=== PATIENT | male | born 1955 | race Caucasian/White ===

== ENCOUNTER 2020-01-03 09:51 | Outpatient (REF) | payer MEDICARE, SELFPAY ==
[2020-01-03 10:10] LABS: MANUAL DIFF FLAG NO
[2020-01-03 10:34] LABS: Basophils Absolute Auto 0.1 X10*3/uL (0.0-0.2); Basophils Percent Auto 0.9 % (0-2); Eosinophils Absolute Auto 0.2 X10*3/uL (0.0-0.4); Eosinophils Percent Auto 2.2 % (0-4); Hematocrit 40.6 % (42-52); Hemoglobin 13.7 g/dl (14.0-18.0); Imm Gran Abs Auto 0.03 X10*3/uL (0.00-0.03); Imm Gran Pct Auto 0.3 % (0.0-0.4); Lymphocytes Absolute Auto 2.8 X10*3/uL (1.2-4.9); Lymphocytes Percent Auto 26.7 % (20-40); Mean Corpuscular HGB Conc 33.7 g/dl (31.0-36.0); Mean Corpuscular Hemoglobin 30.3 pg (27.0-33.0); Mean Corpuscular Volume 89.8 fL (80-98); Mean Platelet Volume 8.7 fL (9.4-12.4); Monocytes Absolute Auto 0.9 X10*3/uL (0.1-1.2); Monocytes Percent Auto 8.4 % (2-11); Neutrophils Absolute Auto 6.4 X10*3/uL (2.0-8.3); Neutrophils Percent Auto 61.5 % (45-73); Platelet Count 366 X10*3/uL (160-400); Red Blood Count 4.52 X10*6/uL (4.60-5.80); Red Cell Distribution Width 12.4 % (11.0-16.0); White Blood Count 10.5 X10*3/uL (4.8-10.8)
[2020-01-03 10:55] LABS: Alanine Aminotransferase 14 U/L (0-40); Albumin Level 4.2 g/dL (3.5-5.0); Alkaline Phosphatase 66 U/L (39-117); Anion Gap 16 (12-20); Aspartate Amino Transferase 24 U/L (5-37); Bilirubin Total 0.6 mg/dL (0.0-1.0); Blood Urea Nitrogen 9 mg/dL (9-16); Calcium 8.7 mg/dL (8.4-10.2); Carbon Dioxide 22 mmol/L (22-29); Chloride 101 mmol/L (96-108); Estimated Glomerular Filt Rate > 60; Glucose Random 86 mg/dL (60-115); Potassium 4.7 mmol/l (3.3-5.1); Sodium 134 mmol/L (135-145); Total Protein 7.2 g/dL (6.5-8.0)
[2020-01-03 11:13] LABS: Vitamin D 25-OH Total 9.5 ng/mL (>30)
== END 2020-01-03 09:52 | disposition home or self-care (01) ==
LOC: HO.10HDL 09:51
PROVIDERS: PCP Internal Medicine; Visit Provider Internal Medicine
DX: I10 Essential (primary) hypertension (principal); M54.9 Dorsalgia, unspecified
CPT/HCPCS: 36415; 80053; 82306; 85025

== ENCOUNTER 2020-07-26 07:03 | Outpatient (REF) | payer MEDICARE, SELFPAY ==
[2020-07-26 07:53] LABS: MANUAL DIFF FLAG NO
[2020-07-26 07:58] LABS: Basophils Absolute Auto 0.1 X10*3/uL (0.0-0.2); Basophils Percent Auto 0.6 % (0-2); Eosinophils Absolute Auto 0.4 X10*3/uL (0.0-0.4); Eosinophils Percent Auto 3.9 % (0-4); Hemoglobin 13.5 g/dl (14.0-18.0); Imm Gran Abs Auto 0.04 X10*3/uL (0.00-0.03); Imm Gran Pct Auto 0.4 % (0.0-0.4); Lymphocytes Absolute Auto 2.9 X10*3/uL (1.2-4.9); Lymphocytes Percent Auto 27.4 % (20-40); Mean Corpuscular HGB Conc 33.8 g/dl (31.0-36.0); Mean Corpuscular Hemoglobin 30.5 pg (27.0-33.0); Mean Corpuscular Volume 90.3 fL (80-98); Mean Platelet Volume 8.4 fL (9.4-12.4); Monocytes Absolute Auto 0.9 X10*3/uL (0.1-1.2); Monocytes Percent Auto 8.6 % (2-11); Neutrophils Absolute Auto 6.3 X10*3/uL (2.0-8.3); Neutrophils Percent Auto 59.1 % (45-73); Platelet Count 396 X10*3/uL (160-400); Red Blood Count 4.43 X10*6/uL (4.60-5.80); Red Cell Distribution Width 12.4 % (11.0-16.0); White Blood Count 10.6 X10*3/uL (4.8-10.8)
[2020-07-26 08:28] LABS: Alanine Aminotransferase 16 U/L (0-40); Albumin Level 4.4 g/dL (3.5-5.0); Alkaline Phosphatase 62 U/L (39-117); Anion Gap 11 (12-20); Aspartate Amino Transferase 14 U/L (5-37); Bilirubin Total 0.4 mg/dL (0.0-1.0); Blood Urea Nitrogen 12 mg/dL (9-16); Calcium 9.7 mg/dL (8.4-10.2); Carbon Dioxide 29 mmol/L (22-29); Chloride 103 mmol/L (96-108); Estimated Glomerular Filt Rate > 60; Glucose Random 94 mg/dL (60-115); Potassium 4.9 mmol/L (3.3-5.1); Sodium 138 mmol/L (135-145); Total Protein 6.9 g/dL (6.5-8.0)
[2020-07-26 08:35] LABS: Prostate Specific Antigen 0.81 ng/mL (<0.05-4.0)
== END 2020-07-26 07:04 | disposition home or self-care (01) ==
LOC: HO.LAB 07:03
PROVIDERS: PCP Internal Medicine; Visit Provider Internal Medicine
DX: Z12.5 Encounter for screening for malignant neoplasm of prostate (principal); I10 Essential (primary) hypertension; M54.5 Low back pain; R35.1 Nocturia
CPT/HCPCS: 36415; 80053; 84153; 85025

== ENCOUNTER 2021-04-23 07:41 | Outpatient (REF) | payer MEDICARE, SELFPAY ==
[2021-04-23 10:32] LABS: MANUAL DIFF FLAG NO
[2021-04-23 10:37] LABS: Basophils Absolute Auto 0.1 X10*3/uL (0.0-0.2); Basophils Percent Auto 0.9 % (0-2); Eosinophils Absolute Auto 0.3 X10*3/uL (0.0-0.4); Eosinophils Percent Auto 2.5 % (0-4); Hematocrit 41.4 % (42.0-52.0); Hemoglobin 14.3 g/dl (14.0-18.0); Imm Gran Abs Auto 0.03 X10*3/uL (0.00-0.03); Imm Gran Pct Auto 0.3 % (0.0-0.4); Lymphocytes Absolute Auto 3.4 X10*3/uL (1.2-4.9); Lymphocytes Percent Auto 33.3 % (20-40); Mean Corpuscular HGB Conc 34.5 g/dl (31.0-36.0); Mean Corpuscular Hemoglobin 30.8 pg (27.0-33.0); Mean Platelet Volume 8.8 fL (9.4-12.4); Monocytes Absolute Auto 0.9 X10*3/uL (0.1-1.2); Monocytes Percent Auto 8.4 % (2-11); Neutrophils Absolute Auto 5.6 x10*3/uL (2.0-8.3); Neutrophils Percent Auto 54.6 % (45-73); Platelet Count 441 X10*3/uL (160-400); Red Blood Count 4.65 X10*6/uL (4.60-5.80); Red Cell Distribution Width 12.4 % (11.0-16.0); White Blood Count 10.2 X10*3/uL (4.8-10.8)
[2021-04-23 10:50] LABS: Anion Gap 11 (12-20); Blood Urea Nitrogen 10 mg/dL (9-16); Calcium 10.1 mg/dL (8.4-10.2); Carbon Dioxide 30 mmol/L (22-29); Chloride 98 mmol/L (96-108); Cholesterol 216 mg/dL; Estimated Glomerular Filt Rate > 60; Glucose Fasting 80 mg/dL (60-99); HDL Cholesterol 59 mg/dL; LDL Cholesterol Calculated 136 mg/dl; Potassium 4.4 mmol/L (3.3-5.1); Sodium 135 mmol/L (135-145); Triglycerides 106 mg/dL
== END 2021-04-23 07:42 | disposition home or self-care (01) ==
LOC: HO.10HDL 07:41
PROVIDERS: Visit Provider Internal Medicine
DX: J44.9 Chronic obstructive pulmonary disease, unspecified (principal); I10 Essential (primary) hypertension; M54.9 Dorsalgia, unspecified; K57.90 Diverticulosis of intestine, part unspecified, without perforation or abscess without bleeding
CPT/HCPCS: 36415; 80048; 80061; 85025

== ENCOUNTER 2021-12-25 13:24 | Emergency (ER) | payer MEDICARE, SELFPAY ==
[2021-12-25 13:41] VITALS: BP 185/95; PULSE 97; RESP 18; TEMP 37.1; O2SAT 100; BMI 24.4
--- NOTE | 2021-12-25 16:48 | ED_ITS ---
HPI - General Adult General Chief complaint: Eye Problems Stated complaint: fb in l eye Time Seen by Provider: 12/25/21 16:14 Source: patient Limitations: no limitations History of Present Illness HPI narrative: This is a 66-year-old male who yesterday had noted a squiggly lines in his vision. Patient initially thought it might be a hair from a cat that was on his eye. The patient tried rinsing his eye out with eyedrops. The patient's morning stated the eye seems normal. He has not had any irritation, redness, or foreign body sensation. Patient went fishing but again noticed that he had a squiggly line in his vision, that seem to move when he moved his eyeball. He he denies any sensation like a curtain coming down or crosses vision. Denies any flashing lights. He has no headache, redness, irritation, tearing. Related Data Allergies Allergy/AdvReac Type Severity Reaction Status Date / Time Penicillins Allergy Mild HIVES Unverified 11/22/19 15:01 Sulfa (Sulfonamide Allergy Unknown UNKNOWN Unverified 11/22/19 15:01 Antibiotics) Penicillin Allergy Unknown Uncoded 05/10/11 00:00 Review of Systems Review of Systems: As per HPI Constitutional: Constitutional: Denies headache(s) Eyes: Eyes: Reports as per HPI ENT: Denies headache(s) Neurologic: Denies Abnormal speech present and Denies headache(s) [facility] Social History Social History Advance Directives: No Advance Directives Information Provided: Yes Physical Exam ED Vital Signs: Vital Signs - 24 hr 12/25/21 13:41 Temperature 98.7 F Pulse Rate 97 Respiratory Rate 18 Blood Pressure 185/95 H Pulse Oximetry 100 Oxygen Delivery Method Room Air BMI result Body Mass Index 24.4 Const Other: Patient well-appearing in no distress Eyes Other: Pupils equal round reactive to light conjunctivae pink. No conjunctival irritation. Retina not well visualized due to pupillary constriction but no obvious vitreous hemorrhage apparent. Visual kramer normal General: appearance normal, both eyes and all related structures Resp Effort & Inspection: normal respiratory effort Auscultation: clear to auscultation bilaterally Cardio Rate: regular rate Rhythm: regular rhythm Heart sounds: S1 normal heart sound present and S2 normal heart sound present Neuro Speech: No Abnormal speech present Course Course Course Narrative: Bedside ultrasound was used to evaluate the patient's left eye. The contour of the retinal surface appeared normal, with no evidence of retinal detachment. Medical Decision Making MDM Narrative Medical decision making narrative: Patient with a screw going line in his vision, which sounds like a floater from the way he describes it. Examination of the eye is normal. Visual kramer were normal. Ultrasound was used to evaluate for retinal detachment and the retinal surface appeared smooth. Patient is being referred to Ophthalmology as he needs a dilated exam to further evaluate his eye more completely. No evidence of corneal injury or foreign body clinical Discharge Plan Discharge Clinical Impression: Floaters in visual field Patient Disposition: Home, Self-Care Additional Instructions: Follow-up with an boat hoist operator helper for a dilated exam. You appear to have a floater in your vitreous humor, which is a common phenomenon. I do not suspect a retinal detachment or vitreous detachment, though follow-up with an eye doctor for more thorough exam is warranted. Return for any new or worsened symptoms such as eye irritation or redness, worse change in her vision, flashing lights or a a curtain like phenomenon in your vision Referrals: Jose Alberto Eldridge [Physician] - 3 days Interventions: ED Discharge Assessment Last Done: 12/25/21 16:57 Discharge Date/Time: 12/25/21 16:57
== END 2021-12-25 16:57 | disposition home or self-care (01) ==
PROVIDERS: Emergency Provider Emergency Medicine; PCP Internal Medicine
DX: H43.392 Other vitreous opacities, left eye (principal)
CPT/HCPCS: 99282

== ENCOUNTER 2022-04-06 07:33 | Outpatient (REF) | payer MEDICARE, SELFPAY ==
[2022-04-06 10:35] LABS: MANUAL DIFF FLAG NO
[2022-04-06 10:44] LABS: Appearance Urine Clear; Color Urine Yellow; Glucose Urine UA Negative (Negative); Leukocyte Esterase Urine Small (1+) (Negative); Nitrite Urine Negative (Negative); UMIC TRIGGER UA YES; Urine Blood Negative (Negative); Urine Ketones Negative (Negative); Urine Protein Negative (Neg-Trace)
[2022-04-06 10:47] LABS: Basophils Absolute Auto 0.1 X10*3/uL (0.0-0.2); Basophils Percent Auto 0.8 % (0-2); Eosinophils Absolute Auto 0.3 X10*3/uL (0.0-0.4); Eosinophils Percent Auto 2.9 % (0-4); Hematocrit 45.6 % (42.0-52.0); Hemoglobin 15.7 g/dl (14.0-18.0); Imm Gran Abs Auto 0.02 X10*3/uL (0.00-0.03); Imm Gran Pct Auto 0.2 % (0.0-0.4); Lymphocytes Absolute Auto 4.4 X10*3/uL (1.2-4.9); Lymphocytes Percent Auto 39.5 % (20-40); Mean Corpuscular HGB Conc 34.4 g/dl (31.0-36.0); Mean Corpuscular Hemoglobin 30.1 pg (27.0-33.0); Mean Corpuscular Volume 87.5 fL (80.0-98.0); Mean Platelet Volume 9.4 fL (9.4-12.4); Neutrophils Absolute Auto 5.2 x10*3/uL (2.0-8.3); Neutrophils Percent Auto 47.6 % (45-73); Platelet Count 317 X10*3/uL (160-400); Red Blood Count 5.21 X10*6/uL (4.60-5.80)
[2022-04-06 10:49] LABS: Bacteria Urine 4+ (None Seen); Hyaline Casts Urine 0-2 /LPF (0-2); RBC Urine 0-2 /HPF (0-2); Squamous Epithelial Cell Urine 0-2 /HPF (0-2)
[2022-04-06 12:01] LABS: Prostate Specific Antigen Scr 0.95 ng/mL (<0.05-4.0)
[2022-04-06 12:07] LABS: Alanine Aminotransferase 19 U/L (0-40); Albumin Level 4.7 g/dL (3.5-5.0); Alkaline Phosphatase 71 U/L (39-117); Anion Gap 14 (12-20); Aspartate Amino Transferase 17 U/L (5-37); Bilirubin Total 0.7 mg/dL (0.0-1.0); Blood Urea Nitrogen 7 mg/dL (9-16); Calcium 9.8 mg/dL (8.4-10.2); Carbon Dioxide 27 mmol/L (22-29); Chloride 99 mmol/L (96-108); Cholesterol 229 mg/dL; Estimated Glomerular Filt Rate > 60; Glucose Fasting 73 mg/dL (60-99); HDL Cholesterol 59 mg/dL; LDL Cholesterol Calculated 150 mg/dl; Potassium 4.4 mmol/L (3.3-5.1); Sodium 136 mmol/L (135-145); Total Protein 7.3 g/dL (6.5-8.0); Triglycerides 101 mg/dL
== END 2022-04-06 07:34 | disposition home or self-care (01) ==
LOC: HO.10HDL 07:33
PROVIDERS: Visit Provider Internal Medicine
DX: E78.00 Pure hypercholesterolemia, unspecified (principal); K57.90 Diverticulosis of intestine, part unspecified, without perforation or abscess without bleeding; I10 Essential (primary) hypertension; R35.1 Nocturia; Z12.5 Encounter for screening for malignant neoplasm of prostate
CPT/HCPCS: 36415; 80053; 80061; 81001; 84153; 85025

== ENCOUNTER 2022-08-09 07:41 | Outpatient (REF) | payer MEDICARE, SELFPAY ==
[2022-08-09 11:53] LABS: Alanine Aminotransferase 19 U/L (0-40); Albumin Level 4.4 g/dL (3.5-5.0); Alkaline Phosphatase 75 U/L (39-117); Anion Gap 13 (12-20); Aspartate Amino Transferase 16 U/L (5-37); Bilirubin Total 0.3 mg/dL (0.0-1.0); Blood Urea Nitrogen 11 mg/dL (9-16); Calcium 9.4 mg/dL (8.4-10.2); Carbon Dioxide 27 mmol/L (22-29); Chloride 103 mmol/L (96-108); Cholesterol 136 mg/dL; Estimated Glomerular Filt Rate > 60; Glucose Fasting 83 mg/dL (60-99); HDL Cholesterol 51 mg/dL; LDL Cholesterol Calculated 73 mg/dl; Potassium 4.3 mmol/L (3.3-5.1); Sodium 139 mmol/L (135-145); Total Protein 6.9 g/dL (6.5-8.0); Triglycerides 62 mg/dL
== END 2022-08-09 07:42 | disposition home or self-care (01) ==
LOC: HO.10HDL 07:41
PROVIDERS: Visit Provider Internal Medicine
DX: E78.00 Pure hypercholesterolemia, unspecified (principal); I10 Essential (primary) hypertension
CPT/HCPCS: 36415; 80053; 80061

== ENCOUNTER 2022-11-26 09:47 | Outpatient (REF) | payer MEDICARE, SELFPAY ==
--- NOTE | ~2022-11-26 | XR_ITS ---
EXAMINATION: XR CHEST CLINICAL INFORMATION: Reason for Exam COUGH COMPARISON: No prior imaging was not able to be retrieved at the time of dictation for comparison. TECHNIQUE: 2 views of the chest FINDINGS: Lines and tubes: None. Clear lungs. No pleural effusion. No pneumothorax. Ectatic thoracic aorta. Normal cardiac silhouette. Minimal indeterminate wedge compression deformity of a lower thoracic vertebral body, favored to be T12 with thoracic kyphosis. XR/XR chest 2V IMPRESSION: 1. Clear lungs. 2. Ectatic thoracic aorta. 3. Minimal indeterminate wedge compression deformity of a lower thoracic vertebral body, favored to be T12 with thoracic kyphosis.
== END 2022-11-26 09:48 | disposition home or self-care (01) ==
LOC: HO.XRAY 09:47
PROVIDERS: PCP Internal Medicine; Visit Provider Internal Medicine
DX: R05.9 Cough, unspecified (principal); R06.02 Shortness of breath
CPT/HCPCS: 71046

== ENCOUNTER → 2022-12-15 07:40 | Outpatient (REF) | payer MEDICARE, SELFPAY ==
--- NOTE | ~2022-12-15 | NM_ITS ---
Lexiscan Myocardial perfusion study Indication: Shortness of breath, assess for coronary disease and ischemia Technique: The patient was brought in for a Lexiscan perfusion study on 12/15/2022 and was injected 0.4 mg of Lexiscan intravenously. Within a minute of this injection 25 mCi of sestamibi was given intravenously. Images were obtained using the SPECT gamma camera interlaced with the gating device. Images were obtained in supine position. Resting perfusion study was performed on 12/16/2022. Patient was administered 25 mCi of sestamibi intravenously at rest. Images were then obtained in supine position. Images were processed with the software and compared side to side in short axis, horizontal long axis and vertical long axis views. Total DLP 92mGy-cm. Findings: Raw acquisition reviewed. Arms by the patient's side. Study quality seems suboptimal. The stress perfusion study showed diminished tracer uptake along the inferior wall, basal inferior septum. Possibly some subdiaphragmatic tracer uptake as well. The gated study shows normal LV systolic function with calculated LVEF of 65%. LV cavity is normal in size. The gated study shows reduced thickening and contractility in the inferior wall and basal part of septum. Resting study shows tracer uptake along the inferior wall and basal part of inferior septum/septum. There is improvement with CT attenuation correction which could indicate components of diaphragmatic attenuation artifact. Gating at rest reveals LVEF of 61%; inferior/basal septal contractility reduced. The findings are consistent with fixed perfusion defect in the inferior wall, basal part of septum/inferior septum. Possibly from diaphragmatic attenuation correction. No clear reversible defects. NM/NM amador perf SPECT rest & str Impression: 1. Myocardial perfusion imaging study shows no evidence of ischemia. Fixed perfusion defect in the inferior wall, basal part of inferior septum/septum that could be from diaphragmatic attenuation artifact vs prior infarct. 2. Gated LVEF is 60% during stress and 61% during rest. 3. Transient ischemic dilatation not present. EKG component of the test reported separately.
== END ==
LOC: HO.CARD 07:40
PROVIDERS: PCP Internal Medicine; Visit Provider Internal Medicine
DX: R06.09 Other forms of dyspnea (principal)
CPT/HCPCS: 78452; 93017; A9500; J0280; J2785

== ENCOUNTER → 2022-12-15 08:30 | Outpatient (BNV) | payer MEDICARE, SELFPAY | PROVIDERS: PCP Internal Medicine; Visit Provider Internal Medicine | DX: R06.02 Shortness of breath (principal); R07.9 Chest pain, unspecified | CPT/HCPCS: 78452 ==

== ENCOUNTER 2023-08-11 13:47 | Emergency (ER) | payer MEDICARE, SELFPAY ==
[2023-08-11 14:09] VITALS: BP 143/72; PULSE 81; RESP 19; TEMP 36.6; O2SAT 98; BMI 23.7
--- NOTE | 2023-08-11 14:12 | ED.ABDPAIN ---
HPI - Abdominal Pain General Chief Complaint: Abdominal Pain Stated Complaint: Hernia, swelling/pain groin area Related Data Allergies Allergy/AdvReac Type Severity Reaction Status Date / Time Penicillins Allergy Mild HIVES Verified 08/11/23 14:11 Sulfa (Sulfonamide Allergy Unknown UNKNOWN Verified 08/11/23 14:11 Antibiotics) Penicillin Allergy Unknown Hives Uncoded 08/11/23 14:11 PMFSH Social History Social History Advance Directives: No Advance Directives Information Provided: No Physical Exam ED Vital Signs: Vital Signs - 24 hr 08/11/23 14:09 Temperature 98 F Pulse Rate 81 Respiratory Rate 19 Blood Pressure 143/72 H Pulse Oximetry 98 Oxygen Delivery Method Room Air BMI result Body Mass Index 23.7 Course Course Course Narrative: This is a Rapid Medical Examination (RME) performed by Jessica Cole PA-C in triage. Full HPI, ROS, assessment and treatment plan per primary provider in the Main ED. 67 yo male here for eval of right groin hernia x2 weeks with increasing pain (7/10) and now nausea wiithout vomiting. denies injury/ trauma. denies diarrhea, constipation, dysuria, hematuria, penile discharge or lesions. exam limited in triage. well appearing. Plan: labs, UA ordered, +/- imaging per primary provider Reevaluation(s) Reevaluation #1: Patient left the ED without completing treatment. Medical Decision Making Lab Data 08/11/23 15:03 08/11/23 15:03 Labs: Lab Results 08/11/23 Range/Units 15:03 WBC 9.1 (4.8-10.8) X10*3/uL RBC 4.54 L (4.60-5.80) X10*6/uL Hgb 14.3 (14.0-18.0) g/dl Hct 40.0 L (42.0-52.0) % MCV 88.1 (80.0-98.0) fL MCH 31.5 (27.0-33.0) pg MCHC 35.8 (31.0-36.0) g/dl RDW 12.4 (11.0-16.0) % Plt Count 324 (160-400) X10*3/uL MPV 8.4 L (9.4-12.4) fL Immature Gran % (Auto) 0.2 (0.0-0.4) % Neut % (Auto) 63.2 (45-73) % Lymph % (Auto) 27.1 (20-40) % [place] % (Auto) 6.6 (2-11) % Eos % (Auto) 1.9 (0-4) % Baso % (Auto) 1.0 (0-2) % Lymph # (Auto) 2.5 (1.2-4.9) X10*3/uL [place] # (Auto) 0.6 (0.1-1.2) X10*3/uL Eos # (Auto) 0.2 (0.0-0.4) X10*3/uL Baso # (Auto) 0.1 (0.0-0.2) X10*3/uL Abs Immat Gran (auto) 0.02 (0.00-0.03) X10*3/uL Absolute Neuts (auto) 5.8 (2.0-8.3) x10*3/uL Absolute Nucleated RBC 0.000 (0.0-0.012) X10*3/uL Nucleated RBC % (auto) 0.0 (0.0-0.2) /100WBC PT 12.7 (11.1-13.3) SEC INR 1.0 (0.9-1.1) Sodium 139 (135-145) mmol/L Potassium 4.1 (3.3-5.1) mmol/L Chloride 103 (96-108) mmol/L Carbon Dioxide 30 H (22-29) mmol/L Anion Gap 10 L (12-20) BUN 8 L (9-16) mg/dL Creatinine 0.71 (0.5-1.4) mg/dL Estim Creat Clear Calc 107.5 Estimated GFR > 60 Random Glucose 95 (60-115) mg/dL Calcium 9.8 (8.4-10.2) mg/dL Magnesium 1.9 (1.6-2.6) mg/dL Total Bilirubin 0.5 (0.0-1.0) mg/dL AST 20 (5-37) U/L ALT 19 (0-40) U/L Alkaline Phosphatase 60 (39-117) U/L Total Protein 7.2 (6.5-8.0) g/dL Albumin 4.6 (3.5-5.0) g/dL Lipase 22 (8-78) U/L Discharge Plan Discharge Clinical Impression: Abdominal pain Patient Disposition: Left W/O Completing Treatment Discharge Date/Time: 08/11/23 20:12
[2023-08-11 15:08] LABS: MANUAL DIFF FLAG NO
[2023-08-11 15:12] LABS: Basophils Absolute Auto 0.1 X10*3/uL (0.0-0.2); Eosinophils Absolute Auto 0.2 X10*3/uL (0.0-0.4); Eosinophils Percent Auto 1.9 % (0-4); Hemoglobin 14.3 g/dl (14.0-18.0); Imm Gran Abs Auto 0.02 X10*3/uL (0.00-0.03); Imm Gran Pct Auto 0.2 % (0.0-0.4); Lymphocytes Absolute Auto 2.5 X10*3/uL (1.2-4.9); Lymphocytes Percent Auto 27.1 % (20-40); Mean Corpuscular HGB Conc 35.8 g/dl (31.0-36.0); Mean Corpuscular Hemoglobin 31.5 pg (27.0-33.0); Mean Corpuscular Volume 88.1 fL (80.0-98.0); Mean Platelet Volume 8.4 fL (9.4-12.4); Monocytes Absolute Auto 0.6 X10*3/uL (0.1-1.2); Monocytes Percent Auto 6.6 % (2-11); Neutrophils Absolute Auto 5.8 x10*3/uL (2.0-8.3); Neutrophils Percent Auto 63.2 % (45-73); Platelet Count 324 X10*3/uL (160-400); Red Blood Count 4.54 X10*6/uL (4.60-5.80); Red Cell Distribution Width 12.4 % (11.0-16.0); White Blood Count 9.1 X10*3/uL (4.8-10.8)
[2023-08-11 15:17] LABS: Prothrombin Time 12.7 SEC (11.1-13.3)
[2023-08-11 15:24] LABS: Alanine Aminotransferase 19 U/L (0-40); Albumin Level 4.6 g/dL (3.5-5.0); Alkaline Phosphatase 60 U/L (39-117); Anion Gap 10 (12-20); Aspartate Amino Transferase 20 U/L (5-37); Bilirubin Total 0.5 mg/dL (0.0-1.0); Blood Urea Nitrogen 8 mg/dL (9-16); Calcium 9.8 mg/dL (8.4-10.2); Carbon Dioxide 30 mmol/L (22-29); Chloride 103 mmol/L (96-108); Creatinine Clr Calc Pharmacy 107.5; Estimated Glomerular Filt Rate > 60; Glucose Random 95 mg/dL (60-115); Lipase 22 U/L (8-78); Magnesium 1.9 mg/dL (1.6-2.6); Potassium 4.1 mmol/L (3.3-5.1); Sodium 139 mmol/L (135-145); Total Protein 7.2 g/dL (6.5-8.0)
--- NOTE | 2023-08-11 20:12 | PC.NURSE ---
Called in WR multiple times with no answer
== END 2023-08-11 20:12 | disposition left against medical advice (07) ==
PROVIDERS: Physician Assistant Medical; Emergency Provider Emergency Medicine; PCP Internal Medicine
DX: R10.30 Lower abdominal pain, unspecified (principal); Z79.899 Other long term (current) drug therapy
CPT/HCPCS: 36415; 80053; 83690; 83735; 85025; 85610; 99281; 99283

== ENCOUNTER 2023-08-16 10:38 | Outpatient (AMB) | payer MEDICARE, SELFPAY ==
[2023-08-16 10:38] VITALS: BP 148/70; PULSE 82; BMI 23.1
--- NOTE | 2023-08-16 10:38 | MHC.OFFVIS ---
Vital Signs 08/16/23 10:38 Height 5 ft 11 in Weight 166 lb BMI 23.1 BP 148/70 H Blood Pressure Location Rt brachial Position Sitting Pulse 82 Intake Visit Reasons: symptomatic rt inguinal hernia Intake Note: This patient presents for a symptomatic right inguinal hernia. Patient c/o; reports bulge, right groin, reports pain and discomfort. Administration Intern Required: No Accompanied by: Self / Same As Patient Allergies Penicillins Allergy (Mild, Verified 08/16/23 10:47) HIVES Sulfa (Sulfonamide Antibiotics) Allergy (Unknown, Verified 08/16/23 10:47) UNKNOWN Penicillin Allergy (Unknown, Uncoded 08/16/23 10:47) Hives Medication List - Last Reconciled 08/16/23 by Wisam Malave MD amlodipine 10 mg PO DAILY hydroxyzine HCl 10 mg PO TID prednisone 20 mg PO DAILY rosuvastatin 5 mg PO DAILY tramadol 50 mg PO TID PRN HPI Comments Details: 67-year-old male patient presenting for evaluation of a right inguinal hernia. He is a prior history of incarcerated left inguinal hernia repaired by Dr. Martinez on 12/15/2010. The current hernia began several weeks ago when going up the stairs to catch his CT. He twisted and felt a pull in the right groin. Subsequent to that he developed some tightness and then a large bulge which he currently feels. The bulge increases with lifting but decreases when in the bed. He has discomfort associated with this bulge but denies any nausea, vomiting, fever, chills, diarrhea or constipation. He denies previous right inguinal hernia surgery. [facility] Surgical History No pertinent past surgical history Social History Unable to assess alcohol history related to: Unknown Patient Tobacco Use Status: Tobacco use Unknown Review of Systems Const All systems reviewed & are unremarkable except as noted in HPI and below Denies chills, Denies fever(s), Denies headache(s), Denies poor appetite and Denies weakness ENT Denies headache(s) Card Denies chest pain, Denies irregular heart rhythm, Denies palpitations and Denies dyspnea Resp Denies cough, Denies excessive phlegm production and Denies dyspnea GI Denies abdominal pain, Denies bloating, Denies change in bowel habits, Denies constipation, Denies heartburn, Denies diarrhea, Denies nausea and Denies vomiting Denies difficulty urinating and Denies urinary frequency Musc Denies back pain, Denies muscle weakness and Denies numbness Skin/Breast Denies changing lesions and Denies unusual bruising Neuro Denies headache(s), Denies numbness, Denies paresthesias and Denies weakness Psych Denies anxiety and Denies depression Endo Denies palpitations Leonardo/Lymph Denies lymphadenopathy Physical Exam Const General: cooperative and no acute distress Nutritional Appearance: well nourished Orientation/consciousness: patient oriented x3 Limitations: no limitations HEENT Head: Yes normocephalic and Yes atraumatic Ears: hearing grossly normal bilaterally Resp Effort & Inspection: normal respiratory effort, no audible wheezes, no cough and no respiratory distress Cardio Jugular venous distension: no JVD GI Inspection: Yes normal to inspection Palpation (GI): Soft to palpation, nontender, no guarding, not rigid and Hernia present direct inguinal (Reducible) on the right Skin Other: Warm, dry, no rash Neuro General: patient oriented x3 Extrem General: Yes no clubbing, cyanosis or edema Assessment & Plan Assessment & Plan (1) Right inguinal hernia: Code(s): K40.90 - Unilateral inguinal hernia, without obstruction or gangrene, not specified as recurrent Category: Medical Plan 67-year-old male patient presenting with a reducible right inguinal hernia. On examination the hernia increases with Valsalva but reduces easily with light pressure. I recommended elective repair of this right inguinal hernia with mesh and after discussion of the procedure, risks and alternatives, he consents to the surgery. Coding Level of Care Code New Pt Level 4 (86211) Diagnoses Right inguinal hernia K40.90
== END 2023-08-16 11:00 | disposition home or self-care (01) ==
PROVIDERS: PCP Internal Medicine; Visit Provider Surgery
DX: K40.90 Unilateral inguinal hernia, without obstruction or gangrene, not specified as recurrent (principal)
CPT/HCPCS: 99204

== ENCOUNTER → 2023-08-16 10:38 | Outpatient (BNVA) | payer MEDICARE, SELFPAY | PROVIDERS: PCP Internal Medicine; Visit Provider Surgery | DX: K40.90 Unilateral inguinal hernia, without obstruction or gangrene, not specified as recurrent (principal) | CPT/HCPCS: 99202 ==

== ENCOUNTER 2023-08-31 05:45 | Day surgery (SDC) | payer MEDICARE, SELFPAY ==
[2023-08-25 12:46] VITALS: BP 133/66; PULSE 75; RESP 16; O2SAT 97; BMI 23.7
--- NOTE | 2023-08-25 13:05 | P.CONAN_ITS ---
Documented by User: Ella Mendoza NP 08/25/23 13:13 HPI - Anesthesia Eval Consult details Narrative: 67yo M for Right Hernia Inguinal Reducible with mesh, 08/31/23 No recent illness No CP/SOB with fishing, hiking prior to hernia discomfort Ex-smoker: quit 6 months ago PMFSH Active Problems Active Problems: All Active Problems Right inguinal hernia (Acute) Past Medical History Medical History Former smoker Low back pain DDD (degenerative disc disease), lumbar Spinal stenosis Psoriasis Hypercholesteremia Hypertension Family History Family history of problems with anesthesia: Unobtainable () Surgical History Surgical History Hx of colonoscopy History of left inguinal hernia repair (~2010) History of Problems with Anesthesia: No Social History Social History Household Members: Significant Other Housing: House Are you a primary animal care provider to a significant other at home: No Do you presently have visiting nurse or other home services: No Patient Tobacco Use Status: Former Tobacco user Tobacco use type: Cigarette Meds Allergies Allergy/AdvReac Type Severity Reaction Status Date / Time Penicillins Allergy Intermediate HIVES,SOB Verified 08/25/23 12:44 Sulfa (Sulfonamide Allergy Unknown UNKNOWN Verified 08/25/23 12:44 Antibiotics) Home Medications ?Medication ?Instructions ?Recorded ?Confirmed ?Last Taken ?Type amlodipine 10 mg tablet 10 mg PO DAILY 08/16/23 08/25/23 Unknown History rosuvastatin 5 mg tablet 5 mg PO DAILY 08/16/23 08/25/23 Unknown History tramadol 50 mg tablet 50 mg PO TID PRN Pain 08/16/23 08/25/23 Unknown History Exam Height,Weight and Vital Signs: Height 5 ft 11 in Weight 77.111 kg Last Vital Signs Pulse 75 08/25/23 12:46 Resp 16 08/25/23 12:46 BP 133/66 08/25/23 12:46 Pulse Ox 97 08/25/23 12:46 O2 Del Method Room Air 08/25/23 12:46 Pertinent Lab Results Pertinent Lab Results: Laboratory Tests 08/11/23 15:03 WBC 9.1 Hgb 14.3 Hct 40.0 L Plt Count 324 Sodium 139 Potassium 4.1 Chloride 103 Carbon Dioxide 30 H BUN 8 L Creatinine 0.71 Airway Mallampati Class: II TM Dist: >3cm Neck ROM: Full Loose/Missing/Broken Teeth: Yes (edentulous) Heart: RRR Lungs: CTAB Assessment and Plan Assessment Anesthesia Assessment: Anesthesia Plan Discussed and PAT Visit Final Anesthetic Review Family History of Problems with Anesthesia: Unobtainable () History of Problems with Anesthesia: No Documented by User: Tiffany Mcdonald MD 08/31/23 07:54 PMFSH Past Medical History Medical History Former smoker Low back pain DDD (degenerative disc disease), lumbar Spinal stenosis Psoriasis Hypercholesteremia Hypertension Surgical History Surgical History Hx of colonoscopy History of left inguinal hernia repair (~2010) Social History Social History Household Members: Significant Other Housing: House Are you a primary animal care provider to a significant other at home: No Do you presently have visiting nurse or other home services: No Patient Tobacco Use Status: Former Tobacco user Tobacco use type: Cigarette Meds Allergies Allergy/AdvReac Type Severity Reaction Status Date / Time Penicillins Allergy Intermediate HIVES,SOB Verified 08/25/23 12:44 Sulfa (Sulfonamide Allergy Unknown UNKNOWN Verified 08/25/23 12:44 Antibiotics) Home Medications ?Medication ?Instructions ?Recorded ?Confirmed ?Last Taken ?Type amlodipine 10 mg tablet 10 mg PO DAILY 08/16/23 08/25/23 Unknown History rosuvastatin 5 mg tablet 5 mg PO DAILY 08/16/23 08/25/23 Unknown History tramadol 50 mg tablet 50 mg PO TID PRN Pain 08/16/23 08/25/23 Unknown History Assessment and Plan Assessment Anesthesia Assessment: Chart Reviewed Final Anesthetic Review NPO: Yes ASA Class: II Final Preanesthetic Review: No Changes in Pt Med Stat, Meds/Allgs Chart Reviewed, Consent Obtained/Reviewed and Anes Risks/Benef Reviewed Patient Risk: Low Procedure Risk: Low Anesthetic Plan Anesthetic Plan: GA Disposition: Standard PACU
[2023-08-31 06:32] VITALS: BMI 23.7
[2023-08-31 07:06] VITALS: BP 128/69; PULSE 71; RESP 18; TEMP 37.1; O2SAT 99
[2023-08-31] MEDS: Lactated Ringers 1,000 ML 100 ML IVCONT (07:10)
[2023-08-31] MEDS: vancomycin HCL 1,000 MG in 0.9 % Sodium Chloride 250 ML 270 MG IV (07:20)
--- NOTE | 2023-08-31 07:20 | MHC.SHP ---
Pre-Procedural Eval Section A - 24 Hr Update-Section A only Date of Service: 08/31/23 The patient is an INPATIENT: No Changes since office visit: Yes Patient answered all questions; No Cold of Flu in the past 2 weeks, No New Medical Problems and No Changes in Medication The patient has been examined within 24 hours of the surgical procedure. The History & Physical has been completed within 30 days and I have reviewed it.: Yes Section B - Complete if H&P > 30 days Chief Complaint: Unilateral inguinal hernia, without obstruction or Allergies: Allergies Allergy/AdvReac Type Severity Reaction Status Date / Time Penicillins Allergy Intermediate HIVES,SOB Verified 08/25/23 12:44 Sulfa (Sulfonamide Allergy Unknown UNKNOWN Verified 08/25/23 12:44 Antibiotics) Plan Diagnosis/Plan: Unchanged I have reviewed the history and physical and performed a pertinent physical examination on my patient. No changes have occurred unless specified. Time Spent With Patient Time: Total time managing care of this patient today ____ minutes.
--- NOTE | 2023-08-31 08:20 | W.PM.OPN ---
Operative Note Operative Note Date of Service: 08/31/23 Narrative: Preoperative diagnosis: Right inguinal hernia, reducible Postoperative diagnosis: Same Procedure: Repair of right inguinal hernia with mesh Surgeon: Wisam Malave MD Surgery Specialist: Huma Aaron PA-C Anesthesia: General and LMA Indications for procedure: 67-year-old male patient presenting with a painful right inguinal hernia which is reducible. On examination he has a easily identified right inguinal hernia which increases in size with standing and reduces with light pressure. Operative findings: Indirect right inguinal hernia Specimen: Hernia sac Estimated blood loss: Less than 2 mL Complications: None Procedure details: Patient was brought to the OR placed in a supine position. After administering general anesthesia, the patient's right groin was prepped with ChloraPrep and draped in a sterile fashion. A surgical time-out was called the consent confirmed. Patient received preoperative antibiotics and Venodyne boots were in place. Local anesthesia was then infiltrated over the right inguinal ligament. Incision was then made with a scalpel carried out through subcutaneous tissue. Incision was carried down past Carolyn's fascia up to the external oblique aponeurosis. Additional local was infiltrated below the external oblique aponeurosis. This was then incised with a scalpel widened with the Metzenbaum scissors. The spermatic cord was then dissected free from the inguinal canal and retracted using a [place] drain. The floor of the inguinal canal was found to be intact. Fibers of the cremaster muscle were then and a hernia sac identified. This was dissected down to the internal ring. The sac was then opened and the contents reduced. The sac was then ligated at its base with a 0 Polysorb suture. The sac was then reduced into the abdominal cavity. Internal ring was then dissected into the preperitoneal space. This was further dissected using an open Ray-Chente sponge. A large extended PHS mesh was then obtained. The circular underlay was then deployed within the preperitoneal space. The overlay was secured to the pubic tubercle, conjoined tendon, and shelving edge of the inguinal ligament using 0 Polysorb suture. A slit was made in the mesh in the mesh wrapped around the spermatic cord at the internal ring. This was then secured at the shelving edge using 0 Polysorb. The remainder of the mesh was placed below the external oblique laterally. Wounds were then irrigated with saline solution and suctioned dry. External oblique was then closed using a running 2-0 Polysorb suture. 8 mL of Zenrelef was then infiltrated below the external oblique aponeurosis. Carolyn's fascia was then closed using interrupted 3-0 Polysorb sutures. Dermis was closed using interrupted 3-0 Polysorb suture. Skin was closed using a running subcuticular 4-0 Polysorb suture. Sterile dressings including Steri-Strips, 4 x 4 gauze and Tegaderm were then applied. The patient tolerated the procedure well. Sponge, instrument, and needle counts reported as correct. The patient was transferred to PACU in stable condition.
[2023-08-31 08:30] VITALS: BP 119/57; PULSE 65; RESP 18; TEMP 36.3; O2SAT 100
[2023-08-31 08:35] VITALS: BP 115/64; PULSE 75; RESP 18; O2SAT 100
[2023-08-31 08:40] VITALS: BP 123/64; PULSE 71; RESP 18; O2SAT 98
[2023-08-31 08:45] VITALS: BP 130/67; PULSE 70; RESP 18; O2SAT 97
[2023-08-31] MEDS: oxyCODONE HCl Immed Release 5 MG TABLET PO (08:49)
[2023-08-31 09:00] VITALS: BP 123/62; PULSE 68; RESP 18; TEMP 36.1; O2SAT 96
== END 2023-08-31 09:39 | disposition home or self-care (01) ==
PROVIDERS: PCP Internal Medicine; Visit Provider Surgery
PROC: (CPT 49505; principal; 2023-08-31 07:30)
DX: K40.90 Unilateral inguinal hernia, without obstruction or gangrene, not specified as recurrent (principal); I10 Essential (primary) hypertension; E78.00 Pure hypercholesterolemia, unspecified; M51.36 Other intervertebral disc degeneration, lumbar region; L40.9 Psoriasis, unspecified; Z79.899 Other long term (current) drug therapy; Z88.0 Allergy status to penicillin; Z88.2 Allergy status to sulfonamides; Z98.890 Other specified postprocedural states; Z87.891 Personal history of nicotine dependence
CPT/HCPCS: 49505; 88302; C1781; C9088; J1100; J2704; J3010; J3370

== ENCOUNTER → 2023-08-31 05:45 | Outpatient (BNV) | payer MEDICARE, SELFPAY | PROVIDERS: PCP Internal Medicine; Visit Provider Surgery | DX: K40.90 Unilateral inguinal hernia, without obstruction or gangrene, not specified as recurrent (principal) | CPT/HCPCS: 49505 ==

== ENCOUNTER 2023-09-09 11:03 | Outpatient (AMB) | payer MEDICARE, SELFPAY ==
--- NOTE | 2023-09-09 11:16 | MHC.OFFVIS ---
Vital Signs 09/09/23 11:23 Weight 165 lb BP 122/61 Blood Pressure Location Rt brachial Position Sitting Pulse 69 Intake Visit Reasons: S/P RIH w/mesh Intake Note: This patient presents for a post-op assessment status post right inguinal hernia repair with mesh. Patient c/o; reports no complaints pertaining to surgery. Surgery date: 08/31/2023 Groundwater Programs Director Required: No Accompanied by: Self / Same As Patient Allergies Penicillins Allergy (Intermediate, Verified 09/09/23 11:24) HIVES,SOB Sulfa (Sulfonamide Antibiotics) Allergy (Unknown, Verified 09/09/23 11:24) UNKNOWN HPI Comments Details: 67-year-old male patient status post repair of a right inguinal hernia with mesh. He tolerated this well and denies any ongoing symptoms. He does note some bruising and swelling in scrotum but this is improving. [facility] Medical History Former smoker Low back pain DDD (degenerative disc disease), lumbar Spinal stenosis Psoriasis Hypercholesteremia Hypertension Surgical History Hx of colonoscopy History of left inguinal hernia repair (~2010) Social History Household Members: Significant Other Housing: House Are you a primary acute care assistant to a significant other at home: No Do you presently have visiting nurse or other home services: No Patient Tobacco Use Status: Former Tobacco user Tobacco use type: Cigarette Review of Systems Const All systems reviewed & are unremarkable except as noted in HPI and below Physical Exam Vital Signs: Last Vital Signs Pulse 69 09/09/23 11:23 BP 122/61 09/09/23 11:23 Const General: comfortable Nutritional Appearance: well nourished Orientation/consciousness: patient oriented x3 Limitations: no limitations Resp Effort & Inspection: normal respiratory effort GI Other: Well-healed incision right groin with no redness or discharge. No hernia noted with Valsalva maneuvers Inspection: Yes normal to inspection Palpation (GI): Soft to palpation, nontender and no guarding Neuro General: patient oriented x3 Assessment & Plan Assessment & Plan (1) Right inguinal hernia: Code(s): K40.90 - Unilateral inguinal hernia, without obstruction or gangrene, not specified as recurrent Category: Medical Plan 67-year-old male patient status post repair of a right inguinal hernia with mesh. He tolerated the procedure well and his wounds are healing nicely. He should continue to avoid lifting greater than 10 lb and return in 3 weeks for final examination. He should call sooner for any new concerns. Coding Level of Care Code Global (22672) Diagnoses Right inguinal hernia K40.90
[2023-09-09 11:23] VITALS: BP 122/61; PULSE 69
== END 2023-09-09 11:33 | disposition home or self-care (01) ==
PROVIDERS: PCP Internal Medicine; Visit Provider Surgery
DX: K40.90 Unilateral inguinal hernia, without obstruction or gangrene, not specified as recurrent (principal)
CPT/HCPCS: 99024

== ENCOUNTER → 2023-09-09 11:03 | Outpatient (BNVA) | payer MEDICARE, SELFPAY | PROVIDERS: PCP Internal Medicine; Visit Provider Surgery | DX: Z48.815 Encounter for surgical aftercare following surgery on the digestive system (principal) | CPT/HCPCS: 99212 ==

== ENCOUNTER 2023-09-30 09:24 | Outpatient (AMB) | payer MEDICARE, SELFPAY ==
--- NOTE | 2023-09-30 09:31 | A.OFFVIS_ITS ---
Vital Signs 3 09/30/23 09:39 Height 5 ft 11 in Weight 164 lb BMI 22.9 BP 133/68 Blood Pressure Location Lt brachial Position Sitting Pulse 79 Intake Visit Reasons: 3 wk follow up S/P RIH w/mesh Intake Note: Patient is seen in office for one month follow up visit, post right inguinal hernia repair. Pt c/o: since last visit, has notice a rash that started at the surgical area and has spread to upper abdomen, has applied hydrocortisone cream with minimal relief Lithopress Operator Required: No Accompanied by: Self / Same As Patient Allergies Penicillins Allergy (Intermediate, Verified 09/30/23 09:38) HIVES,SOB Sulfa (Sulfonamide Antibiotics) Allergy (Unknown, Verified 09/30/23 09:38) UNKNOWN HPI Comments Details: Patient returns 1 month following repair of a right inguinal hernia with mesh. He feels well but does have an area of redness involving the abdomen and upper legs which is very itchy. This developed a proximally 2 weeks ago and has persisted. He has been applying hydrocortisone cream with some relief but he continues to have areas of redness. He denies any pain from the incision area. [facility] Medical History Former smoker Low back pain DDD (degenerative disc disease), lumbar Spinal stenosis Psoriasis Hypercholesteremia Hypertension Surgical History Hx of colonoscopy History of left inguinal hernia repair (~2010) Social History Household Members: Significant Other Housing: House Are you a primary patient care manager to a significant other at home: No Do you presently have visiting nurse or other home services: No Patient Tobacco Use Status: Former Tobacco user Tobacco use type: Cigarette Physical Exam Vital Signs: Last Vital Signs Pulse 79 09/30/23 09:39 BP 133/68 09/30/23 09:39 BMI result Body Mass Index 22.9 Const General: no acute distress Nutritional Appearance: well nourished Orientation/consciousness: patient oriented x3 Resp Effort & Inspection: normal respiratory effort GI Other: Well-healed right inguinal incision with no evidence of hernia recurrence, tenderness or erythema. The surrounding skin including the upper abdomen and upper extremities is red sparing only the area of the previous dressing in the right groin. Findings are suggestive of a contact dermatitis possibly from the abdominal prep. Abdomen image: 2 1. Area of erythema the skin suggestive of a skin rash, contact dermatitis Neuro General: patient oriented x3 Assessment & Plan Assessment & Plan (1) Right inguinal hernia: Code(s): K40.90 - Unilateral inguinal hernia, without obstruction or gangrene, not specified as recurrent Category: Medical (2) Rash: Code(s): R21 - Rash and other nonspecific skin eruption Category: Medical Plan Patient is status post repair of right inguinal hernia one-month ago which is healing nicely without evidence of hernia recurrence. He may resume normal activity without restrictions. He has developed a rash which appears to be in the region of the previous chlorhexidine skin prep. I recommended a Medrol Dosepak. He should call for any further problems. Medications: New 2 methylprednisolone (Medrol (Mo)) PO PER PKG DIR 21 ea 0RF K40.90 - Unilateral inguinal hernia, without obstruction or gangrene, not specified as recurrent, R21 - Rash and other nonspecific skin eruption Coding Level of Care Code Global (63422) Diagnoses Right inguinal hernia K40.90 Rash R21
[2023-09-30 09:39] VITALS: BP 133/68; PULSE 79; BMI 22.9
== END 2023-09-30 09:57 | disposition home or self-care (01) ==
PROVIDERS: PCP Internal Medicine; Visit Provider Surgery
DX: K40.90 Unilateral inguinal hernia, without obstruction or gangrene, not specified as recurrent (principal); R21 Rash and other nonspecific skin eruption
CPT/HCPCS: 99024

== ENCOUNTER → 2023-09-30 09:24 | Outpatient (BNVA) | payer MEDICARE, SELFPAY | PROVIDERS: PCP Internal Medicine; Visit Provider Surgery | DX: K40.90 Unilateral inguinal hernia, without obstruction or gangrene, not specified as recurrent (principal); R21 Rash and other nonspecific skin eruption | CPT/HCPCS: 99212 ==

== ENCOUNTER 2023-12-29 07:25 | Outpatient (REF) | payer MEDICARE, SELFPAY ==
[2023-12-29 10:43] LABS: MANUAL DIFF FLAG NO
[2023-12-29 10:50] LABS: Basophils Absolute Auto 0.1 X10*3/uL (0.0-0.2); Basophils Percent Auto 0.9 % (0-2); Eosinophils Absolute Auto 0.3 X10*3/uL (0.0-0.4); Eosinophils Percent Auto 2.6 % (0-4); Hematocrit 38.5 % (42.0-52.0); Hemoglobin 13.7 g/dl (14.0-18.0); Imm Gran Abs Auto 0.02 X10*3/uL (0.00-0.03); Imm Gran Pct Auto 0.2 % (0.0-0.4); Lymphocytes Absolute Auto 3.7 X10*3/uL (1.2-4.9); Lymphocytes Percent Auto 38.6 % (20-40); Mean Corpuscular HGB Conc 35.6 g/dl (31.0-36.0); Mean Corpuscular Hemoglobin 31.6 pg (27.0-33.0); Mean Corpuscular Volume 88.7 fL (80.0-98.0); Mean Platelet Volume 8.7 fL (9.4-12.4); Monocytes Absolute Auto 0.9 X10*3/uL (0.1-1.2); Monocytes Percent Auto 9.8 % (2-11); Neutrophils Absolute Auto 4.6 x10*3/uL (2.0-8.3); Neutrophils Percent Auto 47.9 % (45-73); Platelet Count 326 X10*3/uL (160-400); Red Blood Count 4.34 X10*6/uL (4.60-5.80); Red Cell Distribution Width 12.4 % (11.0-16.0); White Blood Count 9.5 X10*3/uL (4.8-10.8)
[2023-12-29 11:02] LABS: Alanine Aminotransferase 31 U/L (0-40); Albumin Level 4.4 g/dL (3.5-5.0); Alkaline Phosphatase 61 U/L (39-117); Anion Gap 11 (12-20); Aspartate Amino Transferase 31 U/L (5-37); Bilirubin Total 0.5 mg/dL (0.0-1.0); Blood Urea Nitrogen 6 mg/dL (9-16); Calcium 9.8 mg/dL (8.4-10.2); Carbon Dioxide 30 mmol/L (22-29); Chloride 101 mmol/L (96-108); Cholesterol 140 mg/dL (<200); Estimated Glomerular Filt Rate > 60; Glucose Fasting 86 mg/dL (60-99); HDL Cholesterol 68 mg/dL (>40); LDL Cholesterol Calculated 59 mg/dL (<100); Potassium 3.6 mmol/L (3.3-5.1); Sodium 138 mmol/L (135-145); Total Protein 6.7 g/dL (6.5-8.0); Triglycerides 68 mg/dL (<150)
== END 2023-12-29 07:26 | disposition home or self-care (01) ==
LOC: HO.10HDL 07:25
PROVIDERS: Visit Provider Internal Medicine
DX: I10 Essential (primary) hypertension (principal); E78.00 Pure hypercholesterolemia, unspecified; J44.9 Chronic obstructive pulmonary disease, unspecified
CPT/HCPCS: 36415; 80053; 80061; 85025

== ENCOUNTER 2024-06-11 13:08 | Outpatient (REF) | payer MEDICARE, SELFPAY ==
[2024-06-11 17:01] LABS: Influenza A PCR NEGATIVE (Negative); Influenza B PCR NEGATIVE (Negative); Resp Syncy Virus RNA Qual PCR NEGATIVE (Negative); SARS COV2 PCR INHOUSE NEGATIVE (Negative)
== END 2024-06-11 13:09 | disposition home or self-care (01) ==
LOC: HO.LNP 13:08
PROVIDERS: PCP Internal Medicine; Visit Provider Physician Assistant
DX: J22 Unspecified acute lower respiratory infection (principal); R09.89 Other specified symptoms and signs involving the circulatory and respiratory systems
CPT/HCPCS: 0241U; 99212

== ENCOUNTER 2024-06-11 13:08 | Outpatient (AMB) | payer MEDICARE, SELFPAY ==
--- NOTE | 2024-06-11 13:08 | AM.OFFWIN_ITS ---
Intake Vital Signs 06/11/24 13:09 Weight 165 lb BP 122/80 Blood Pressure Location Rt brachial Position Sitting Pulse 68 Pulse Source Pulse Oximeter Temp 97.7 F Temp Source Oral Pulse Oximetry (%) 98 Oxygen Delivery Method Room Air Intake Visit Reasons: EP Cough, sob Intake Note: Patient here for cough and SOB that has been present for about 4-5 days. Patient Tobacco Use Status: Former Tobacco user Allergies Penicillins Allergy (Intermediate, Verified 06/11/24 13:10) HIVES,SOB Sulfa (Sulfonamide Antibiotics) Allergy (Unknown, Verified 06/11/24 13:10) UNKNOWN Do you need a note to return to daycare/school/sports/work: No HPI HPI Comments History of Present Illness Details History The patient is a 68-year-old male presenting with shortness of breath. - The patient noted difficulty in breath ing for the past six days. - There is history of COPD but the patie nt is not on COPD medications. - The patient is an on/off smoker for ma n years, currently has a one pack per week smoking habit. - He denies fevers, ear pain or sinus pa in but has experienced a runny nose. - Qkvd-cxs-tgvsjdg decongestants were ta meredith but did not relieve the symptoms. - The patient has lung congestion with d ifficulty in expelling phlegm. Physical Exam General: Cooperative, healthy appearing, comfortable and no acute distress Orientation/consciousness: Patient oriented x3 Limitations: No limitations Head: Normal to inspection Ears: Hearing grossly normal bilaterally, external ears normal and TM's normal bilaterally Nose: Normal external nose present, Normal nares present and No nasal discharge present Face and sinus: Normal facial exam and Yes sinuses nontender Mouth: Normal oral and palatal mucosa present and moist mucous membranes Throat: Yes tonsils normal, Yes uvula midline. Posterior oropharynx erythema Eyes: Appearance normal, both eyes and all related structures Neck: Normal visual inspection Respiratory: Clear but dim to auscultation bilaterally. Normal respiratory effort, able to speak in complete sentences, Actively coughing, no respiratory distress, not tachypneic, no tripod positioning and no use of accessory muscles Cardiovascular: Regular rate and rhythm. Normal S1 and S2 Skin: No rashes or lesions noted Neuro: Patient oriented x3 Extremities: Normal to inspection and Yes no clubbing, cyanosis or edema [facility] Medical History Former smoker Low back pain DDD (degenerative disc disease), lumbar Spinal stenosis Psoriasis Hypercholesteremia Hypertension Surgical History Hx of colonoscopy History of left inguinal hernia repair (~2010) Social History Household Members: Significant Other Housing: House Are you a primary youth career specialist to a significant other at home: No Do you presently have visiting nurse or other home services: No Patient Tobacco Use Status: Former Tobacco user Tobacco use type: Cigarette Review of Systems Const All systems reviewed & are unremarkable except as noted in HPI and below Physical Exam Vital Signs: Last Vital Signs Temp 97.7 F 06/11/24 13:09 Pulse 68 06/11/24 13:09 BP 122/80 06/11/24 13:09 Pulse Ox 98 06/11/24 13:09 Oxygen Delivery Method Room Air 06/11/24 13:09 Assessment & Plan Assessment & Plan (1) Lower respiratory infection (e.g., bronchitis, pneumonia, pneumonitis, pulmonitis): Code(s): J22 - Unspecified acute lower respiratory infection Plan: VSS, pt well appearing and PE unremarkable. The patient is prescribed with oral prednisone 40 mg daily for five days to reduce inflammation and ease breathing. Additionally, azithromycin Z-Mo is prescribed for its dual role in addressing potential bacterial causes and inflammation. Flu, COVID-19, and RSV testing were performed during the visit. The patient was advised on optimal medication timing to avoid insomnia. Prescriptions were directed to a pharmacy, with a plan for symptomatic relief and follow-up based on test results. Recommended continued use of decongestant. Patient was informed and verbally consented to the use of an ambient scribe for clinic note documentation during this visit Orders: Orders SARS-CoV2/FLU/RSV Today R09.89 - Other specified symptoms and signs involving the circulatory and respiratory systems Medications: New azithromycin For 250 mg dose pack: take 500 mg today (day 1), then 250 mg for 4 days (days 2-5) PO 6 tabs 0RF prednisone 40 mg (2 x 20 mg) PO QAM 10 tabs 0RF Coding Level of Care Code Est Pt Level 3 (95124) Diagnoses Lower respiratory infection (e.g., bronchitis, pneumonia, pneumonitis, pulmonitis) J22
[2024-06-11 13:09] VITALS: BP 122/80; PULSE 68; TEMP 36.5; O2SAT 98
--- OUTSIDE RECORDS SUMMARY | 2024-06-11 15:36 | XMS_ITS ---
Author Organization [facility] Address [address] [place] [address] Care Team Providers Care Mold Builder Name Role Phone Trace Patrick MD Primary Care Provider Roly Najera Jr [phone] REASON FOR VISIT screening Encounters Encounter Location Date Provider Diagnosis [facility] [place] Outpatient [address] [place] [id number] 06/01/2024 Roly Choi Jr Plan Of Treatment Next Appt Details Provider Name:Roly mcqueen Jr, 06/19/2024 12:50:00 PM, [address] [place] [address], [phone], Progress Notes * WILLIS OLVERADOB:[birth year] (68 yo M)Acc No.[id number]:06/01/2024 COLON WITH MAC Patient:?WADE WILLIS Hernandez Provider:?Roly Choi MD :1955???Age:68 Y???Sex:Male Kade e:06/01/2024 Address:[address] [place], [place] [phone] Pcp:Trace Patrick MD Subjective: * Chief Complaints: * ???1. Screening. * Medical History:? Objective: * Vitals:? Assessment: Plan: * Treatment: * * The named appointment provid er may or may not be the originator of this progress note, and it is not deemed complete until electronically signed by the appointment provider. Sign off status: Pending * Provider:?Roly Choi MD Date:?0 06/01/2024 Generated for Justyna miranda/Everardo/Emilee on:?06/11/2024 03:36 PM EDT
--- OUTSIDE RECORDS SUMMARY | 2024-06-11 15:36 | XMS_ITS | Patient Health Record ---
Author Organization [facility] Address [address] [place] [address] Care Team Providers Care Tube Draw Helper Name Role Phone Trace Patrick MD Primary Care Provider Unavaila Roly Hamilton Jr Unavailable [phone] Allergies Allergen (clinical drug ingredient) Drug/Non Drug Allergy documented on EMR Reaction Allergy Type Onset Date Status Penicillin Unknown Drug Allergy Active Reason For Referral Referring Provider First Name Trace Referring Provider Last Name Darnell Referring Provider Speciality Internal M edicine Referred Organization [facility] Referred Provider Roly Choi Jr Referred Address [address],[place], [place],[address],[place] Referred Provider Specialty Gastroentero logy General Notes Liana Win 024 03:29:33 PM EST > requested an o blue referral from Dr. Patrick's office for visit with Dr. Choi on 04-11-2024 , 9(said appt was 03-28-2024) Referral Priority Routine Medications Medication SIG (Take, Route, Frequency, Duration) Notes Start Date End Date Status Tramadol & Dietary Manage Prod 50mg Active Norvasc 10mg Active Rosuvastatin Calcium 5 MG TAKE ONE TABLE T BY MOUTH EVERY EVENING Oral for 90 Active MiraLax (colon prep) 17 GM/SCOOP mixed with Gatorade or Crystal Light Orally begin at 5:00 p.m. the day before the procedure for 1 day 04/11/2024 Active amLODIPine Besylate 10 MG TAKE ONE TABLE T BY MOUTH EVERY DAY Oral for 90 Active traMADol HCl 50 MG Oral for 30 Active Immunizations Vaccine Route Administration Date Status Comme nts Influenza Unknown 12/27/2023 Administered Social History Tobacco Use: Social History Observation Description Date Details (start date - stop date) Former Smoker NA - NA Tobacco Use/Smoking Question Answer Notes Patient is a former smoker Problems Problem Type SNOMED Code ICD Code Onset Dates Problem Status W/U Status Risk Notes Problem [id number] Colon cancer screening (Z12.11) Active confirmed Problem [id number] Preprocedural examination (Z01.818) Active confirmed Vital Signs Temperature 97.5 degrees Fahrenheit 04/11/2024 Blood pressure diastolic 00 mm Hg 04/11/2024 Height 72 in 04/11/2024 Blood pressure systolic 000 mm Hg 04/11/2024 Weight 169 lb 6 oz lbs 04/11/2024 BMI 22.97 kg/m2 04/11/2024 Encounters Encounter Location Date Provider Diagnosis [facility] [address] [place] [phone] 04/11/2024 Roly Choi Jr Colon cancer screening Z12.11 and Preprocedural examination Z01.818 [facility] [address] [place] [phone] 05/17/2024 Roly Choi Jr Assessments Encounter Date Diagnosis (ICD Code) Assessment Notes Treatment Notes Treatment Clinical Notes Section Notes 04/11/2024 Colon cancer screening (ICD-10 - Z12.11) Colonoscopy material was printed We discussed colonoscopy today. We discussed risks and benefits of the procedure today. He understands these and agrees to proceed. He is advised to stop tramadol one week before the procedure. 04/11/2024 Preprocedural examination (ICD-10 - Z01.818) We discussed colonoscopy today. We discussed risks and benefits of the procedure today. He understands these and agrees to proceed. He is advised to stop tramadol one week before the procedure. Plan Of Treatment Future Test Test Name Order Date COLONOSCOPY 02/14/2013 COLONOSCOPY 04/11/2024 Next Appt Details Provider Name:Roly mcqueen Jr, 06/19/2024 12:50:00 PM, [address] [place] [address] , [place], [place], [phone], Insurance Providers Payer Name Payer Address Payer Phone Subscriber Number Group Number Insured Name Patient Relationship to Insured Coverage Start Date Coverage End Date [facility] [employer] [address] [place] [id number] 3 WILLIS OLVERA Self - patient is the insured Medical (General) History Medical History History ICD Code Hypertension Colonoscopy in 2013, diverticulosis Hyperlipidemia Back pain Surgical History Surgery Date(Month/Year) hernia repair
--- OUTSIDE RECORDS SUMMARY | 2024-06-11 15:36 | XMS_ITS ---
Author Organization [facility] Address [address] [place] [address] Care Team Providers Care Barbecue Cook Name Role Phone Trace Patrick MD Primary Care Provider Roly Najera Jr [phone] REASON FOR VISIT screening Encounters Encounter Location Date Provider Diagnosis [facility] [place] [address] [place] [id number] 05/22/2024 Roly Choi Jr Plan Of Treatment Next Appt Details Provider Name:Roly mcqueen Jr, 06/19/2024 12:50:00 PM, [address] [place] [address], [phone], Progress Notes * WILLIS OLVERADOB:[birth year] (68 yo M)Acc No.[id number]:05/22/2024 COLON WITH MAC Patient:?WADE, WILLIS Hernandez Provider:?Roly Choi MD :1955???Age:68 Y???Sex:Male Kade e:05/22/2024 Address:[address] [place], [place] [phone] Pcp:Trace Patrick MD Subjective: * Chief Complaints: * ???1. Screening. * Medical History:? Objective: * Vitals:? Assessment: Plan: * Treatment: * * The named appointment provid er may or may not be the originator of this progress note, and it is not deemed complete until electronically signed by the appointment provider. Sign off status: Pending * Provider:?Roly Choi MD Date:?0 05/22/2024 Generated for Justyna miranda/Everardo/Emilee on:?06/11/2024 03:36 PM EDT
--- OUTSIDE RECORDS SUMMARY | 2024-06-11 15:37 | XMS_ITS ---
Author Organization [facility] Address [address] [place] [phone] Care Team Providers Care Bookkeeping Machine Operator Name Role Phone Trace Patrick MD Primary Care Provider Roly Najera Jr REASON FOR VISIT colonoscopy Encounters Encounter Location Date Provider Diagnosis [facility] [address] [place] [phone] 05/17/2024 Roly Choi Jr Plan Of Treatment Next Appt Details Provider Name:Roly mcqueen Jr, 06/19/2024 12:50:00 PM, [address] [place] [address] , [place], [place], [phone], Progress Notes * WILLIS OLVERADOB:[birth year] (68 yo M)Acc No.[id number]:05/17/2024 Patient:?WILLIS OLVERA :1955???Age:68 Y???Sex:Male Address:[address] [place] [address] * true * Date:? Generated for Printi ruben/Fakannang/eTransmitting on:?06/11/2024 03:36 PM EDT
== END 2024-06-11 13:53 | disposition home or self-care (01) ==
PROVIDERS: PCP Internal Medicine; Visit Provider Physician Assistant
DX: J22 Unspecified acute lower respiratory infection (principal)

== ENCOUNTER 2024-06-19 10:55 | Day surgery (SDC) | payer MEDICARE, SELFPAY ==
[2024-06-15 15:06] VITALS: BMI 23.0
[2024-06-19 11:31] VITALS: BMI 21.2
[2024-06-19 11:44] VITALS: BP 133/65; PULSE 85; RESP 18; TEMP 36.6; O2SAT 98
--- NOTE | 2024-06-19 12:07 | HO.ANESPROP2 ---
HPI - Anesthesia Eval Consult details Narrative: 68 yo male patient for Colonoscopy PMFSH Active Problems Active Problems: All Active Problems Lower respiratory infection (e.g., bronchitis, pneumonia, pneumonitis, pulmonitis) (Acute) Rash (Acute) Right inguinal hernia (Acute) Occasional smoker. Last cigarette this morning Past Medical History Medical History Diverticulosis Former smoker Low back pain DDD (degenerative disc disease), lumbar Spinal stenosis Psoriasis Hypercholesteremia Hypertension Family History Family history of problems with anesthesia: No Surgical History Surgical History Hx of colonoscopy (~2013) History of left inguinal hernia repair (~2010) History of Problems with Anesthesia: No Social History Social History Household Members: Significant Other Housing: House Are you a primary healthcare representative to a significant other at home: No Do you presently have visiting nurse or other home services: No Patient Tobacco Use Status: Current someday Tobacco user Tobacco use type: Cigarette Smoked in Last 30 Days: Yes Patient Interested in Nicotine Replacement: No Have you been hit, kicked, punched, or otherwise hurt by someone within the past year? If so, by whom?: No Are you DNR?: No Advance Directives: No Advance Directives Information Provided: Yes Poor oral hygiene: Yes Meds Allergies Allergy/AdvReac Type Severity Reaction Status Date / Time Penicillins Allergy Intermediate HIVES,SOB Verified 06/19/24 11:33 Sulfa (Sulfonamide Allergy Unknown UNKNOWN Verified 06/19/24 11:33 Antibiotics) Active Medications: Current Medications Lactated Ringer's (Lr) 1,000 mls @ 80 mls/hr IVCONT .[id number] [facility] Home Medications ?Medication ?Instructions ?Recorded ?Confirmed ?Last Taken ?Type amlodipine 10 mg tablet 10 mg PO DAILY 08/16/23 06/19/24 06/19/24 History Exam Height,Weight and Vital Signs: Height 6 ft Weight 70.851 kg Last Vital Signs Temp 97.9 F 06/19/24 11:44 Pulse 85 06/19/24 11:44 Resp 18 06/19/24 11:44 BP 133/65 06/19/24 11:44 Pulse Ox 98 06/19/24 11:44 O2 Del Method Room Air 06/19/24 11:44 Airway Mallampati Class: I TM Dist: >3cm Neck ROM: Full Loose/Missing/Broken Teeth: Yes (Edentulous) Heart: RRR Lungs: CTAB Assessment and Plan Assessment Anesthesia Assessment: Anesthesia Plan Discussed and Chart Reviewed Final Anesthetic Review Family History of Problems with Anesthesia: No History of Problems with Anesthesia: No NPO: Yes ASA Class: II Final Preanesthetic Review: No Changes in Pt Med Stat, Meds/Allgs Chart Reviewed, Consent Obtained/Reviewed and Anes Risks/Benef Reviewed Patient Risk: Low Procedure Risk: Low Assessment/Block/Sedation in SS: Assess/Block/Sedation-SS Anesthetic Plan Anesthetic Plan: TIVA Disposition: Standard PACU
--- NOTE | 2024-06-19 12:56 | MHC.SHP ---
Pre-Procedural Eval Section A - 24 Hr Update-Section A only Date of Service: 06/19/24 Section B - Complete if H&P > 30 days Chief Complaint: Encounter for screening for malignant neoplasm of Details of Present Illness: see H&P no changes Relevant Family History (Specify if Yes): No Relevant Social History: Tobacco Use Present Medications: see Short Stay Collaborative assessment Medical History: No relevant PMH History of Previous Operations: No relevant previous surgery Allergies: Allergies Allergy/AdvReac Type Severity Reaction Status Date / Time Penicillins Allergy Intermediate HIVES,SOB Verified 06/19/24 11:33 Sulfa (Sulfonamide Allergy Unknown UNKNOWN Verified 06/19/24 11:33 Antibiotics) Review of Systems Sugical H&P ROS: Negative: Constitution, Cardiovascular, Respiratory, Neurological, Psychiatric, Hem-Onc, Allergic/Immunologic, Gastrointestinal, Genitourinary, Musculoskeletal, Integumentary, Endocrine and Eyes/Ears/Nose/Throat Exam Surgical H&P Exam: Normal: HEENT, Normal: Heart, Normal: Lungs, Normal: Extremities, Normal: Abdomen, Normal: Skin and Normal: Neurological Plan Diagnosis/Plan: Unchanged I have reviewed the history and physical and performed a pertinent physical examination on my patient. No changes have occurred unless specified. Time Spent With Patient Time: Total time managing care of this patient today ____ minutes.
[2024-06-19 13:35] VITALS: BP 94/48; PULSE 67; RESP 16; TEMP 36.4; O2SAT 96
[2024-06-19 13:50] VITALS: BP 123/54; PULSE 60; RESP 16; TEMP 36.4; O2SAT 99
--- NOTE | 2024-06-19 14:25 | OP_ITS ---
DATE OF SERVICE: 06/19/2024 SURGEON: Roly Choi MD INDICATIONS: Colon cancer screening. PREOPERATIVE DIAGNOSIS: POSTOPERATIVE DIAGNOSIS: PROCEDURE PERFORMED: Colonoscopy to the cecum. ESTIMATED BLOOD LOSS: COMPLICATIONS: ANESTHESIA: Monitored anesthesia care. ASSISTANTS: SPECIMENS: DESCRIPTION OF PROCEDURE: A history and physical was performed. The risks and benefits of the procedure were explained to the patient. Informed consent was obtained. The patient was placed in the left lateral decubitus position. A digital rectal exam was performed and was found to be normal. The Olympus pediatric video colonoscope was introduced into the rectum and advanced to the cecum. The cecum was identified by transillumination, palpation, and identification of ileocecal valve. Examination was performed. The scope was removed. He tolerated the procedure well and was returned to the recovery area in stable condition. FINDINGS: The terminal ileum was not examined. The visualized colonic mucosa was normal. There was a moderate amount of liquid and semi-formed stool, which was washed and suctioned as well as some undigested food material. This limited the examination throughout the colon. No polyps were identified. Retroflexed examination showed small internal hemorrhoids. IMPRESSION: Normal colonoscopy. RECOMMENDATION: 1. Follow up as needed. 2. Repeat colonoscopy is recommended in 10 years for average-risk individuals. MD NOEMI Adamson/ADAM / [phone]
== END 2024-06-19 14:08 | disposition home or self-care (01) ==
PROVIDERS: PCP Internal Medicine; Visit Provider Internal Medicine Gastroenterology
PROC: 0DJD8ZZ Inspection of Lower Intestinal Tract, Via Natural or Artificial Opening Endoscopic (ICD-10-PCS; CPT 45378; principal; 2024-06-19 12:50)
DX: Z12.11 Encounter for screening for malignant neoplasm of colon (principal); K64.8 Other hemorrhoids; K57.30 Diverticulosis of large intestine without perforation or abscess without bleeding; I10 Essential (primary) hypertension; E78.5 Hyperlipidemia, unspecified; M54.9 Dorsalgia, unspecified; Z79.899 Other long term (current) drug therapy; Z88.0 Allergy status to penicillin; Z98.890 Other specified postprocedural states; Z87.891 Personal history of nicotine dependence
CPT/HCPCS: G0121; J1596; J2003; J2704

== ENCOUNTER 2024-07-09 11:00 | Outpatient (AMB) | payer MEDICARE, SELFPAY ==
--- NOTE | 2024-07-09 11:00 | A.OFFPC_ITS ---
Vital Signs 07/09/24 11:09 Height 5 ft 11 in Weight 164 lb BMI 22.9 BP 144/68 H Respiration 16 Pulse 74 Temp 97.9 F Temp Source Oral Pulse Oximetry (%) 97 Oxygen Delivery Method Room Air Intake Visit Reasons: Routine Special Warfare Operator Required: No Accompanied by: Self / Same As Patient Allergies Penicillins Allergy (Intermediate, Verified 07/09/24 11:34) HIVES,SOB Sulfa (Sulfonamide Antibiotics) Allergy (Unknown, Verified 07/09/24 11:34) UNKNOWN Medication List - Last Reconciled 07/09/24 by Ervin Bah MD amlodipine 10 mg PO DAILY rosuvastatin 5 mg PO DAILY tramadol 50 mg PO TID PRN Tobacco use date assessed: 07/09/24 Fall risk assessment: No Falls in past year Last assessed Fall Risk: 07/09/24 Dental Screening Dental Screen Date: 07/09/24 Did you have a dental visit in the last 12 months?: No Did you have a dental problem in the last 6 months where you did not have access to dental care?: No Was dental information given to patient?: Patient declined (Does not have a dentist) [facility] Medical History Hypercholesteremia Hypertension Diverticulosis Former smoker Low back pain DDD (degenerative disc disease), lumbar Spinal stenosis Psoriasis Surgical History Hx of colonoscopy (~06/19/24) History of left inguinal hernia repair (~2010) Family History Mother No problems noted. Father No problems noted. Social History Household Members: Significant Other Housing: House Are you a primary neonatal intensive care unit nurse to a significant other at home: No Do you presently have visiting nurse or other home services: No Alcohol intake: current Alcohol intake frequency: does not drink Patient Tobacco Use Status: Current someday Tobacco user Tobacco use type: Cigarette service: No Current occupational status: retired Cognitive needs: No Hearing needs: No Vision needs: Yes (Reading) Questionnaire PHQ-9 Over the last 2 weeks, how often have you been bothered by any of the following problems? 1. Little interest or pleasure in doing things: not at all 2. Feeling down, depressed, or hopeless: not at all 3. Trouble falling or staying asleep, or sleeping too much: not at all 4. Feeling tired or having little energy: not at all 5. Poor appetite or overeating: not at all 6. Feeling bad about yourself - or that you are a failure or have let yourself or your family down: not at all 7. Trouble concentrating on things, such as reading the newspaper or watching television: not at all 8. Moving or speaking so slowly that other people could have noticed. Or the opposite - being so fidgety or restless that you have been moving around a lot more than usual: not at all 9. Thoughts that you would be better off or of hurting yourself in some way: not at all Total score: 0 Depression Screening Interpretation: Negative Depression Screening Done: Yes Source: Developed by Drs. Johny Monteiro, Dariela Holt, Lester Andrade and colleagues, with an educational angie from [employer]. Thrive Questionnaire Date Thrive assessed: 07/09/24 I am a: Patient What is your living situation today?: I have a steady place to live Within the past 12 months, did the food you bought not last and you didn't have the money to get more?: Never true Within the past 12 months, did you worry whether your food would run out before you got money to buy more?: Never true Do you have trouble paying for medicines?: No Do you have trouble getting transportation to medical appointments?: No Do you have trouble paying your heating and electricity bill?: No Do you have trouble taking care of your child, family member or friend?: No Do you have trouble with day-to-day activities such as bathing, preparing meals, shopping, managing finances, etc.?: No Are you currently unemployed and looking for a job?: No Are you interested in more education?: No Currently or been in a relationship where the following occur: No concerns reported THRIVE Score: 0 AUDIT C Alcohol Use Questionnaire (AUDIT-C) 1. How often do you have a drink containing alcohol?: Monthly or less 2. How many drinks containing alcohol do you have on a typical day when you are drinking?: 1 or 2 Total Score: 1 LUZ ELENA-7 AMB Questionnaire LUZ ELENA-7 Date LUZ ELENA - 7 assessed: 07/09/24 Feeling nervous, anxious, or on edge: 3 = Nearly every day Not being able to stop or control worryin = Not at all Worrying too much about different things: 3 = Nearly every day Trouble relaxin = Not at all Being so restless that it is hard to sit still: 3 = Nearly every day Becoming easily annoyed or irritable: 3 = Nearly every day Feeling afraid as if something awful might happen: 3 = Nearly every day Total LUZ ELENA-7 score (0-4 normal; 5-9 mild; 10-14 moderate; 15-21 severe): 15 Source: Developed by Drs. Johny Monteiro, Dariela Holt, Lester Andrade and colleagues, with an educational angie from [employer]. Physical exam (Primary Care) Vital Signs: Last Vital Signs Temp 97.9 F 07/09/24 11:09 Pulse 74 07/09/24 11:09 Resp 16 07/09/24 11:09 BP 144/68 H 07/09/24 11:09 Pulse Ox 97 07/09/24 11:09 Oxygen Delivery Method Room Air 07/09/24 11:09 Care Plan Goal for BP management: Blood pressure is in range. BMI result Body Mass Index 22.9 Tobacco/Smoking Status: Tobacco use Status Tobacco use date assessed 07/09/24 07/09/24 11:03 Patient Tobacco Use Status Current someday Tobacco 07/09/24 11:03 Tobacco use type Cigarette 07/09/24 11:03 PHQ-9: PHQ-9 Score PHQ-9: Total score 0 07/09/24 11:03 Depression Screening Interpretation: Negative Thrive Assessment: Date of Thrive Assessment Date Thrive assessed 07/09/24 07/09/24 11:03 Currently or been in a relationship where the following occur: No concerns reported Advance Care Planning discussion: Exists, not on file Date of discussion: 07/09/24 Who was present: Patient Forms completed: MOLST Time spent: 1-15 minutes, on File Actual minutes spent: 5 Coding Level of Care Code New Pt Level 4 (21083) Complex EM visit Add On G2211 Diagnoses Hypertension I10 Hypercholesteremia E78.00 Spinal stenosis M48.00 Additional Codes Vital Signs *Quality* - Advance Care Planning discussion: Exists, not on file ([id number]) Vital Signs *Quality* - Time spent: 1-15 minutes, on File ([id number]) Assessment & Plan Assessment & Plan (1) Hypertension: Code(s): I10 - Essential (primary) hypertension Category: Medical Plan: Blood pressure is in range. Continue current medications. (2) Hypercholesteremia: Code(s): E78.00 - Pure hypercholesterolemia, unspecified Category: Medical Plan: Blood work has been ordered. Will call with results. (3) Spinal stenosis: Code(s): M48.00 - Spinal stenosis, site unspecified Category: Medical Plan: Patient is able to do all his activities of daily living taking 3 tramadol is a day. 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 Plan History of Present Illness The patient is a 68-year-old male presenting with concerns regarding chronic back pain management, which he has been managing with Tramadol for the past 13 years. He takes this medication three times a day and wishes to maintain this dosage as reduction worsens his pain. The patient has been diligent in following the prescribed regimen without any abuse. A temporary cessation of Tramadol for a medical procedure notably increased his discomfort. Additionally, the patient mentions a history of allergy problems and recent stress related to his 's severe health issues, which includes breathing difficulties attributed to chronic obstructive pulmonary disease (COPD). Social History - Family Status: , 's significant health concerns impacting stress level. - Substance Use: Smoked previously; relapsed recently after quitting eight months ago. - Functional Status: Maintains independence; able to drive. - Emotional Status: Reports experiencing increased stress and anxiety, primarily due to his 's health issues. Review of Systems - Musculoskeletal: Reports chronic back pain. - Respiratory: Denies any acute respiratory problems; concerns related to allergy issues only. - Emotional/Psychiatric: Reports increased stress and anxiety. Physical Exam General: Cooperative and healthy appearing Nutritional Appearance: Well nourished Orientation/consciousness: Patient oriented x3 Limitations: No limitations Head: Normal to inspection General: Appearance normal, both eyes and all related structures Neck: Normal visual inspection Chest: Normal palpation of entire chest wall Respiratory: Breathing issues noted, possibly related to anxiety and past smoking history. ormal respiratory effort Neurology: Patient oriented x3 Results - Labs: Discuss blood work to be repeated. Plan 1. Chronic Back Pain - Patient to maintain current Tramadol dosage 3 times daily. - Continue adherence to prescribed medication. - Evaluate symptom progression in subsequent visits. 2. History Of Allergies - Observe symptoms and discuss as needed during future visits. - Encourage consultation if symptoms worsen. Discussion Notes During the patient's visit, we discussed the ongoing management of his chronic back pain, including maintaining the current Tramadol intake of three times a day due to efficacy in managing discomfort. I emphasized the importance of adherence to his current medication regimen and aware him of the potential risk of dependency and side effects. The patient understood and agreed to continue the current treatment approach. We also planned to repeat the blood work to monitor his health status further. We discussed his allergies briefly, and we agreed to review this in more detail during future visits as needed. Stress management strategies were part of our conversation due to current life stressors, primarily involving issues with his 's health. Patient Instructions - Continue taking Tramadol as prescribed, three times daily, for back pain. - Monitor for any changes in pain levels or potential side effects. - Get blood work done as instructed and report results. - Be aware of any allergy symptoms and seek advice if symptoms worsen. - Follow up as needed, especially if symptoms change. - Practice stress management techniques to help cope with current life challenges. Orders: Orders Complete Blood Count no Diff Today E78.00 - Pure hypercholesterolemia, unspecified, I10 - Essential (primary) hypertension, M48.00 - Spinal stenosis, site unspecified Lipid Panel Today E78.00 - Pure hypercholesterolemia, unspecified, I10 - Essential (primary) hypertension, M48.00 - Spinal stenosis, site unspecified Thyroid Stimulating Hormone Today E78.00 - Pure hypercholesterolemia, unspecified, I10 - Essential (primary) hypertension, M48.00 - Spinal stenosis, site unspecified Basic Metabolic Panel Today E78.00 - Pure hypercholesterolemia, unspecified, I10 - Essential (primary) hypertension, M48.00 - Spinal stenosis, site unspecified Liver Panel Today E78.00 - Pure hypercholesterolemia, unspecified, I10 - Essential (primary) hypertension, M48.00 - Spinal stenosis, site unspecified UA and rflx microscopic Today E78.00 - Pure hypercholesterolemia, unspecified, I10 - Essential (primary) hypertension, M48.00 - Spinal stenosis, site unspecified Medications: Refilled tramadol partial fill upon patient request 50 mg PO TID PRN 90 tabs 0RF Pain
[2024-07-09 11:09] VITALS: BP 144/68; PULSE 74; RESP 16; TEMP 36.6; O2SAT 97; BMI 22.9
--- OUTSIDE RECORDS SUMMARY | 2024-07-09 12:40 | XMS_ITS ---
Author Organization [facility] Address [address] [place] [address] Care Team Providers Care Station Captain Name Role Phone Trace Patrick MD Primary Care Provider Roly Najera Jr REASON FOR VISIT screening Encounters Encounter Location Date Provider Diagnosis [facility] Outpatient [address] [place] [id number] 05/22/2024 Roly Choi Jr Plan Of Treatment No Information Progress Notes * WADE WILLIS HernandezDOB:[birth year] (68 yo M)Acc No.[id number]:05/22/2024 COLON WITH MAC Patient:?WILLIS OLVERA J Provider:?Roly Choi MD :1955???Age:68 Y???Sex:Male Kade e:05/22/2024 Address:[address] [place], [place] [phone] Pcp:Trace Patrick MD Subjective: * Chief Complaints: * ???1. Screening. * Medical History:? Objective: * Vitals:? Assessment: Plan: * Treatment: * * The named appointment provid er may or may not be the originator of this progress note, and it is not deemed complete until electronically signed by the appointment provider. Sign off status: Pending * Provider:?Roly Choi MD Date:?0 05/22/2024 Generated for Printi ng/Faxing/eTransmitting on:?07/09/2024 12:40 PM EDT
--- OUTSIDE RECORDS SUMMARY | 2024-07-09 12:41 | XMS_ITS | Patient Health Record ---
Author Organization [facility] Address [address] [place] [address] Care Team Providers Care Utilization Supervisor Name Role Phone Trace Patrick MD Primary Care Provider Unavaila Roly Hamilton Jr Unavailable [phone] Allergies Allergen (clinical drug ingredient) Drug/Non Drug Allergy documented on EMR Reaction Allergy Type Onset Date Status Penicillin Unknown Drug Allergy Active Reason For Referral Referring Provider First Name Trace Referring Provider Last Name Darnell Referring Provider Speciality Internal M edicine Referred Organization [facility] Referred Provider Roly Choi Jr Referred Address [address],[place], [place],[address],[place] Referred Provider Specialty Gastroentero logy General Notes [...] Problem Status W/U Status Risk Notes Problem [id number] Colon cancer screening (Z12.11) Active confirmed Problem [id number] Preprocedural examination (Z01.818) Active confirmed Vital Signs Temperature 97.5 degrees Fahrenheit 04/11/2024 Blood pressure diastolic 00 mm Hg 04/11/2024 Height 72 in 04/11/2024 Blood pressure systolic 000 mm Hg 04/11/2024 Weight 169 lb 6 oz lbs 04/11/2024 BMI 22.97 kg/m2 04/11/2024 Encounters Encounter Location Date Provider Diagnosis [facility] Outpatient [address] [place] [id number] 06/19/2024 Roly Choi Jr Colon cancer screening Z12.11 [facility] [address] [place] [phone] 04/11/2024 Roly Choi Jr Colon cancer screening Z12.11 and Preprocedural examination Z01.818 [facility] [address] [place] [phone] 05/17/2024 Roly Choi Jr Assessments Encounter Date Diagnosis (ICD Code) Assessment Notes Treatment Notes Treatment Clinical Notes Section Notes 06/19/2024 Colon cancer screening (ICD-10 - Z12.11) 04/11/2024 Colon cancer screening (ICD-10 - Z12.11) [...] Name Order Date COLONOSCOPY 02/14/2013 COLONOSCOPY 04/11/2024 Insurance Providers Payer Name Payer Address Payer Phone Subscriber Number Group Number Insured Name Patient Relationship to Insured Coverage Start Date Coverage End Date [facility] [employer] [address] [place] [address] [id number] WILLIS OLVERA Self - patient is the insured Medical (General) History Medical History History ICD Code Hypertension Colonoscopy in 2013, diverticulosis Hyperlipidemia Back pain Surgical History Surgery Date(Month/Year) hernia repair
--- OUTSIDE RECORDS SUMMARY | 2024-07-09 12:41 | XMS_ITS ---
Author Organization [facility] Address [address] [place] [address] Care Team Providers Care Water Resources Program Director Name Role Phone Trace Patrick MD Primary Care Provider Roly Najera Jr REASON FOR VISIT screening Encounters Encounter Location Date Provider Diagnosis [facility] Outpatient [address] [place] [id number] 06/01/2024 Roly Choi Jr Plan Of Treatment No Information Progress Notes * WADE WILLIS HernandezDOB:[birth year] (68 yo M)Acc No.[id number]:06/01/2024 COLON WITH MAC Patient:?WILLIS OLVERA J Provider:?Roly Choi MD :1955???Age:68 Y???Sex:Male Kade e:06/01/2024 Address:[address] [place], [place] [phone] Pcp:Trace Patrick MD Subjective: * Chief Complaints: * ???1. Screening. * Medical History:? Objective: * Vitals:? Assessment: Plan: * Treatment: * * The named appointment provid er may or may not be the originator of this progress note, and it is not deemed complete until electronically signed by the appointment provider. Sign off status: Pending * Provider:?Roly Choi MD Date:?0 06/01/2024 Generated for Printi ng/Faxing/eTransmitting on:?07/09/2024 12:41 PM EDT
--- OUTSIDE RECORDS SUMMARY | 2024-07-09 12:41 | XMS_ITS ---
Author Organization [facility] Address [address] [place] [address] Care Team Providers Care Director Of Nursing Name Role Phone Trace Patrick MD Primary Care Provider Roly Najera Jr [phone] REASON FOR VISIT colon screening Encounters Encounter Location Date Provider Diagnosis [facility] Outpatient [address] [place], [place] [phone] 06/19/2024 Roly Choi Jr Colon cancer screening Z12.11 Assessments Encounter Date Diagnosis (ICD Code) Assessment Notes Treatment Notes Treatment Clinical Notes Section Notes 06/19/2024 Colon cancer screening (ICD-10 - Z12.11) Plan Of Treatment No Information Progress Notes * WILLIS OLVERA MaryDOB:[birth year] (68 yo M)Acc No.[id number]:06/19/2024 COLON WITH MAC Patient:?WILLIS OLVERA Provider:?Roly Choi MD :1955???Age:68 Y???Sex:Male Kade e:06/19/2024 Address:[address] [place], [place] [phone] Pcp:Trace Patrick MD Subjective: * Chief Complaints: * ???1. Colon screening. * Medical History:? Objective: * Vitals:? Assessment: * Assessment: 1.?Colon cancer screening - Z12.11 (Primary)??? Plan: * Treatment: * Procedure Codes:?71881 DIAGN OSTIC COLONOSCOPY, 0529F INTRVL 3+YRS PTS CLNSCP DOCD * * The named appointment provid er may or may not be the originator of this progress note, and it is not deemed complete until electronically signed by the appointment provider. Sign off status: Pending * Provider:?Roly Choi MD Date:?0 06/19/2024 Generated for Justyna miranda/Everardo/Catrachitaitting on:?07/09/2024 12:40 PM EDT
== END 2024-07-09 11:33 | disposition home or self-care (01) ==
LOC: HO.HMCHD 11:00
PROVIDERS: PCP Internal Medicine; Visit Provider Internal Medicine
DX: I10 Essential (primary) hypertension (principal); E78.00 Pure hypercholesterolemia, unspecified; M48.00 Spinal stenosis, site unspecified; Z00.00 Encounter for general adult medical examination without abnormal findings

== ENCOUNTER → 2024-07-09 11:00 | Outpatient (BNVA) | payer MEDICARE, SELFPAY | PROVIDERS: PCP Internal Medicine; Visit Provider Internal Medicine | DX: I10 Essential (primary) hypertension (principal); E78.00 Pure hypercholesterolemia, unspecified; M48.00 Spinal stenosis, site unspecified; Z79.891 Long term (current) use of opiate analgesic | CPT/HCPCS: 96127; 99202 ==

== ENCOUNTER 2024-07-27 12:19 | Outpatient (AMB) | payer MEDICARE, SELFPAY ==
--- OUTSIDE RECORDS SUMMARY | 2024-07-27 12:20 | XMS_ITS ---
Author Organization [facility] Address [address] [place] [address] Care Team Providers Care Insurance Defense Paralegal Name Role Phone Trace Patrick MD Primary Care Provider Roly Najera Jr REASON FOR VISIT screening Encounters Encounter Location Date Provider Diagnosis [facility] Outpatient [address] [place] [address] [id number] 05/22/2024 Roly Choi Jr Plan Of Treatment No Information Progress Notes * WADE WILLIS HernandezDOB:[birth year] (68 yo M)Acc No.[id number]:05/22/2024 COLON WITH MAC Patient:?WILLIS OLVERA J Provider:?Roly Choi MD :[id number]???Age:68 Y???Sex:Male Kade e:05/22/2024 Address:[address] [place], [place] [id number] Pcp:Trace Patrick MD Subjective: * Chief Complaints: [...] MD Date:?0 05/22/2024 Generated for Printi ng/Faxing/eTransmitting on:?07/27/2024 12:20 PM EDT
--- NOTE | 2024-07-27 14:00 | MHC.OFFWIV ---
Intake Vital Signs 07/27/24 14:01 Weight 163 lb BP 110/74 Blood Pressure Location Lt brachial Position Sitting Pulse 71 Pulse Source Pulse Oximeter Pulse Oximetry (%) 98 Oxygen Delivery Method Room Air Intake Visit Reasons: EP rash on chest Intake Note: Patient here for rash on chest that started back up about 1 week ago. Patient Tobacco Use Status: Current someday Tobacco user Allergies Penicillins Allergy (Intermediate, Verified 07/27/24 14:01) HIVES,SOB Sulfa (Sulfonamide Antibiotics) Allergy (Unknown, Verified 07/27/24 14:01) UNKNOWN Do you need a note to return to daycare/school/sports/work: No HPI HPI Comments History of Present Illness Details 68 y/o male patient who presents to the walk in clinic with c/o very itchy rash on his right Breast/chest tissue for 1 week. Describes the rash as very itchy, red and recurrent. Reports that the rash comes and goes and usually it does occur in different areas of the body (Chest, Abdomen, Arms and Legs) - he has had this rash for years now. The last time was February 2024 - where he was given Steroid cream and Oral prednisone with good relief. [facility] Medical History Hypercholesteremia Hypertension Diverticulosis Former smoker Low back pain DDD (degenerative disc disease), lumbar Spinal stenosis Psoriasis Surgical History Hx of colonoscopy (~06/19/24) History of left inguinal hernia repair (~2010) Family History Mother No problems noted. Father No problems noted. Social History Household Members: Significant Other Housing: House Are you a primary wound care rn to a significant other at home: No Do you presently have visiting nurse or other home services: No Alcohol intake: current Alcohol intake frequency: does not drink Patient Tobacco Use Status: Current someday Tobacco user Tobacco use type: Cigarette service: No Current occupational status: retired Cognitive needs: No Hearing needs: No Vision needs: Yes ([place]) Review of Systems Const All systems reviewed & are unremarkable except as noted in HPI and below Physical Exam Vital Signs: Last Vital Signs Pulse 71 07/27/24 14:01 BP 110/74 07/27/24 14:01 Pulse Ox 98 07/27/24 14:01 Oxygen Delivery Method Room Air 07/27/24 14:01 Const General: no acute distress Orientation/consciousness: patient oriented x3 Skin General skin exam: dry skin and erythema Full body images: 1. Scaly pink raised lesion on right chest/breast. Neuro General: patient oriented x3, gait normal and moves all extremities Psych Speech and movement: Normal speech and movement present Assessment & Plan Assessment & Plan (1) Rash: Code(s): R21 - Rash and other nonspecific skin eruption Plan: Keep Area clean and dry Apply Topical Cream BID Ordered Prednisone for few days May use Benadryl for itching. Medications: New clotrimazole-betamethasone 1-0.05 % 1 appl topical BID 45 grams 1RF 2 weeks R21 - Rash and other nonspecific skin eruption prednisone 20 mg PO DAILY 7 tabs 0RF R21 - Rash and other nonspecific skin eruption Coding Level of Care Code Est Pt Level 4 (38976) Diagnoses Rash R21 Time Spent (min) 20
[2024-07-27 14:01] VITALS: BP 110/74; PULSE 71; O2SAT 98
== END 2024-07-27 14:41 | disposition home or self-care (01) ==
PROVIDERS: PCP Internal Medicine; Visit Provider Nurse Practitioner Family
DX: R21 Rash and other nonspecific skin eruption (principal)

== ENCOUNTER → 2024-07-27 12:19 | Outpatient (BNVA) | payer MEDICARE, SELFPAY | PROVIDERS: PCP Internal Medicine; Visit Provider Nurse Practitioner Family | DX: R21 Rash and other nonspecific skin eruption (principal) | CPT/HCPCS: 99212 ==

== ENCOUNTER 2024-11-23 10:16 | Outpatient (AMB) | payer MEDICARE, SELFPAY ==
--- NOTE | 2024-11-23 09:41 | MHC.PC.OV ---
Vital Signs 11/23/24 10:26 Height 5 ft 11 in Weight 162 lb BMI 22.6 BP 138/78 Blood Pressure Location Rt brachial Position Sitting Respiration 18 Pulse 98 Pulse Source Pulse Oximeter Temp 97.9 F Temp Source Temporal Artery Scan Pulse Oximetry (%) 99 Oxygen Delivery Method Room Air Intake Visit Reasons: SKYLER / Dr Key / Dr Patrick Middleware Solutions Architect Required: No Accompanied by: Self / Same As Patient Allergies Penicillins Allergy (Intermediate, Verified 11/23/24 09:41) HIVES,SOB Sulfa (Sulfonamide Antibiotics) Allergy (Unknown, Verified 11/23/24 09:41) UNKNOWN Tobacco use date assessed: 11/23/24 Fall risk assessment: No Falls in past year Last assessed Fall Risk: 11/23/24 Dental Screening Dental Screen Date: 11/23/24 Did you have a dental visit in the last 12 months?: No Did you have a dental problem in the last 6 months where you did not have access to dental care?: No Was dental information given to patient?: Patient has dentist HPI HPI Comments History of Present Illness Details The patient is a 69-year-old male presenting with chronic back and neck pain. The patient has experienced this pain for approximately 13 to 14 years, indicating long-standing spinal stenosis as noted from prior care. The patient had undergone an MRI, and a spinal surgeon was consulted, but surgery was deemed unsuitable due to unspecified reasons, possibly related to age and potential surgery risks. The patient had attempted various forms of treatment, including the use of Dexamethasone, providing temporary relief but was discontinued due to necessity of long-term use. The current regimen includes Tramadol 50 mg, taken three times daily, which has been on-going for 13 years. Concerns about dependence on Tramadol were discussed, highlighting the possible addiction since the patient's body shows withdrawal symptoms upon missed doses. Despite this risk, the patient reports pain relief from Tramadol. Interventions such as local pain injections have been attempted but did not provide lasting benefits. The patient has not engaged with a body technician/painter previously but is open to reconsidering this path. The patient also expressed reluctance towards surgery and is seeking alternative pain management strategies, emphasizing a preference for avoiding long-term medication dependency and seeking solutions that ensure pain relief. Medical History: - Spinal Stenosis - Long-term use of Tramadol - Tobacco use since 1983 Medications: - Tramadol 50 mg, three times a day for pain management associated with spinal stenosis. Diagnostic Results: - MRI for spinal condition (details not provided) - Previous attempts at local pain injections (specifics not discussed) Social: - The patient has been a smoker since 1983 and is currently attempting to quit smoking. [facility] Medical History (Updated 11/23/24 @ 10:46 by Nahum Pal MD) Tobacco use disorder, continuous Hypercholesteremia Hypertension Diverticulosis Former smoker Low back pain DDD (degenerative disc disease), lumbar Spinal stenosis Psoriasis Surgical History Hx of colonoscopy (~06/19/24) History of left inguinal hernia repair (~2010) Family History Mother No problems noted. Father No problems noted. Social History Household Members: Significant Other Housing: House Are you a primary memory care director to a significant other at home: No Do you presently have visiting nurse or other home services: No Alcohol intake: current Alcohol intake frequency: does not drink Patient Tobacco Use Status: Current someday Tobacco user Tobacco use type: Cigarette Cigarettes Per Day: 2 Years Smoked: since 1983 e-Cigarette/Vaping Use: Never Used service: No Current occupational status: retired Cognitive needs: No Hearing needs: No Vision needs: Yes ([place]) Questionnaire Thrive Questionnaire Date Thrive assessed: 07/09/24 AUDIT C Alcohol Use Questionnaire (AUDIT-C) 1. How often do you have a drink containing alcohol?: Never 3. How often do you have six or more drinks on one occasion?: Never Total Score: 0 LUZ ELENA-7 AMB Questionnaire LUZ ELENA-7 Date LUZ ELENA - 7 assessed: 07/09/24 Source: Developed by Drs. Johny Monteiro, Dariela Holt, Lester Andrade and colleagues, with an educational angie from [employer]. Review of Systems Const Details: - Neurological: Reports chronic back and neck pain. - Pulmonary: Denies chest pain or shortness of breath. - Gastrointestinal: Denies nausea, vomiting, diarrhea, or any changes in bowel habits. - Cardiovascular: Denies any fluttering in the chest. - General: Denies headaches, weakness, or any systemic illness. All systems reviewed & are unremarkable except as reviewed in HPI and above Physical exam (Primary Care) Vital Signs: Last Vital Signs Temp 97.9 F 11/23/24 10:26 Pulse 98 11/23/24 10:26 Resp 18 11/23/24 10:26 BP 138/78 11/23/24 10:26 Pulse Ox 99 11/23/24 10:26 Oxygen Delivery Method Room Air 11/23/24 10:26 BMI result Body Mass Index 22.6 Tobacco/Smoking Status: Tobacco use Status Tobacco use date assessed 11/23/24 11/23/24 10:29 Patient Tobacco Use Status Current someday Tobacco 11/23/24 09:42 Tobacco use type Cigarette 11/23/24 09:42 e-Cigarette/Vaping Use Never Used 11/23/24 10:29 Are you ready to quit: Yes Tobacco cessation counseling provided: Yes Relapse Prevention: discussed the importance of a supportive environment and discussed extending NRT Number of minutes spent counselin CPT code: 15007 - 4-10 Minutes Thrive Assessment: Date of Thrive Assessment Date Thrive assessed 07/09/24 11/23/24 09:42 Const Other: General: Alert and oriented, Well nourished, No acute distress. Eye: Pupils are equal, round and reactive to light, Intact accommodation, Extraocular movements are intact, Normal conjunctiva, Vision unchanged. HENT: Normocephalic, Atraumatic, Tympanic membranes are clear, Normal hearing, Oral mucosa is moist, No pharyngeal erythema, Ear canals patent. Respiratory: Lungs CTA bilaterally, No wheeze, Respirations are non-labored. Cardiovascular: Regular rate, Regular rhythm, S1 auscultated, S2 auscultated, No murmur, Good pulses equal in all extremities, Normal peripheral perfusion, No edema. Gastrointestinal: Soft, Non-tender, Non-distended, Normal bowel sounds, No organomegaly. Musculoskeletal: Normal range of motion, Normal strength, No tenderness, No swelling, No deformity, Normal gait. Integumentary: Warm, Dry, [place], Intact. Neurologic: Alert, Oriented, Normal sensory, Normal motor function, No focal defects, Cranial Nerves II-XII are grossly intact, Normal deep tendon reflexes. Psychiatric: Cooperative, Appropriate mood & affect, Normal judgment. Coding Level of Care Code Est Pt Level 4 (63787) Complex EM visit Add On G2211 Diagnoses Hypertension, unspecified type I10 Hypertension type: unspecified Hypercholesteremia E78.00 Spinal stenosis of cervicothoracic region M48.03 Spinal region: cervicothoracic Tobacco use disorder, continuous F17.209 Additional Codes Vital Signs *Quality* - CPT code: 14919 - 4-10 Minutes ([id number]) Assessment & Plan Assessment & Plan (1) Hypertension: Comment: Continue amlodipine 10 mg daily given good blood pressure control Code(s): I10 - Essential (primary) hypertension Category: Medical Qualifiers: Hypertension type: unspecified Qualified Code(s): I10 - Essential (primary) hypertension (2) Hypercholesteremia: Comment: Continue rosuvastatin 5 mg daily. Prior lipid panel evaluated within normal limits Obtain new lipid panel today Code(s): E78.00 - Pure hypercholesterolemia, unspecified Category: Medical (3) Spinal stenosis: Comment: - Continue current Tramadol regimen due to longstanding relief provided. (Discussed with during treatment however he expressed that he would like to continue same for now and see - Refer to pain management for evaluation of alternative pain control methods. What pain Code(s): M48.00 - Spinal stenosis, site unspecified Category: Medical Qualifiers: Spinal region: cervicothoracic Qualified Code(s): M48.03 - Spinal stenosis, cervicothoracic region (4) Tobacco use disorder, continuous: Comment: - Ordered lung cancer screening due to prolonged smoking history. - Supportive discussion on further cessation attempts, offered NRT but declined Code(s): F17.209 - Nicotine dependence, unspecified, with unspecified nicotine-induced disorders Category: Medical Plan: Health maintenance: - Order and provide lung cancer screening due to prolonged smoking history. Patient was informed and verbally consented to the use of an ambient scribe for clinic note documentation during this visit. Plan I discussed with the patient that the primary focus is addressing chronic back and neck pain while mitigating medication dependency risks. Given the extensive duration of Tramadol use, I emphasized the need to balance pain relief with reducing long-term opioid dependence. A referral to pain management was agreed upon to explore other pain management modalities. Smoking cessation was also highlighted due to the associated health risks, and lung cancer screening was ordered. In this plan, the risks and benefits of the interventions were addressed, ensuring the patient's understanding and agreement. Orders: Orders Complete Blood Count Auto Diff Today E78.00 - Pure hypercholesterolemia, unspecified, I10 - Essential (primary) hypertension Hemoglobin A1c Today E78.00 - Pure hypercholesterolemia, unspecified, I10 - Essential (primary) hypertension TSH reflex Free T4 Today E78.00 - Pure hypercholesterolemia, unspecified, I10 - Essential (primary) hypertension Comprehensive Met. Panel Today E78.00 - Pure hypercholesterolemia, unspecified, I10 - Essential (primary) hypertension Lipid Panel Today E78.00 - Pure hypercholesterolemia, unspecified, I10 - Essential (primary) hypertension Vitamin D 25-OH Total Today E78.00 - Pure hypercholesterolemia, unspecified, I10 - Essential (primary) hypertension Referrals Pain Management Referral M48.00 - Spinal stenosis, site unspecified Lung Cancer Screening Referral F17.209 - Nicotine dependence, unspecified, with unspecified nicotine-induced disorders Medications: Refilled tramadol 50 mg PO TID 84 tabs 3RF 28 days Patient Instructions: - Continue taking Tramadol as prescribed for pain relief. - Follow up with the recommended pain management referral. - Complete the lung cancer screening as scheduled. - Continue efforts to quit smoking; consider additional support if needed. - Monitor for any new symptoms or changes in current pain levels.
[2024-11-23 10:26] VITALS: BP 138/78; PULSE 98; RESP 18; TEMP 36.6; O2SAT 99; BMI 22.6
== END 2024-11-23 10:46 | disposition home or self-care (01) ==
PROVIDERS: PCP Student in an Organized Health Care Education/Training Program; Visit Provider Student in an Organized Health Care Education/Training Program
DX: I10 Essential (primary) hypertension (principal); E78.00 Pure hypercholesterolemia, unspecified; M48.03 Spinal stenosis, cervicothoracic region; F17.210 Nicotine dependence, cigarettes, uncomplicated

== ENCOUNTER → 2024-11-23 10:16 | Outpatient (BNVA) | payer MEDICARE, SELFPAY | PROVIDERS: PCP Internal Medicine; Visit Provider Student in an Organized Health Care Education/Training Program | DX: I10 Essential (primary) hypertension (principal); E78.00 Pure hypercholesterolemia, unspecified; M51.369 Other intervertebral disc degeneration, lumbar region without mention of lumbar back pain or lower extremity pain; M48.03 Spinal stenosis, cervicothoracic region; F17.209 Nicotine dependence, unspecified, with unspecified nicotine-induced disorders; Z13.30 Encounter for screening examination for mental health and behavioral disorders, unspecified | CPT/HCPCS: 99212 ==

== ENCOUNTER 2024-11-23 10:47 | Outpatient (REF) | payer MEDICARE, SELFPAY ==
[2024-11-23 11:55] LABS: MANUAL DIFF FLAG NO
[2024-11-23 12:06] LABS: Hematocrit 39.2 % (42.0-52.0); Hemoglobin 13.9 g/dl (14.0-18.0); Imm Gran Abs Auto 0.03 X10*3/uL (0.00-0.03); Imm Gran Pct Auto 0.3 % (0.0-0.4); Lymphocytes Absolute Auto 1.9 X10*3/uL (1.2-4.9); Mean Corpuscular HGB Conc 35.5 g/dl (31.0-36.0); Mean Corpuscular Hemoglobin 31.2 pg (27.0-33.0); Mean Corpuscular Volume 88.1 fL (80.0-98.0); NRBC Abs Auto 0.000 X10*3/uL (0.0-0.012); NRBC Pct Auto 0.0 /100WBC (0.0-0.2); Platelet Count 364 X10*3/uL (160-400); Red Blood Count 4.45 X10*6/uL (4.60-5.80); White Blood Count 10.7 X10*3/uL (4.8-10.8)
[2024-11-23 12:30] LABS: Hemoglobin A1C 139.5587 umol/L; Total Hemoglobin (HGBA1C) 3553.7366 umol/L
[2024-11-23 12:39] LABS: Alanine Aminotransferase 19 U/L (0-40); Albumin Level 4.7 g/dL (3.5-5.0); Alkaline Phosphatase 90 U/L (39-117); Anion Gap 14 (12-20); Aspartate Amino Transferase 23 U/L (5-37); Blood Urea Nitrogen 10 mg/dL (9-16); Calcium 9.3 mg/dL (8.4-10.2); Carbon Dioxide 28 mmol/L (22-29); Chloride 98 mmol/L (96-108); Cholesterol 133 mg/dL (<200); Estimated Glomerular Filt Rate > 60; HDL Cholesterol 51 mg/dL (>40); Potassium 3.5 mmol/L (3.3-5.1); Sodium 136 mmol/L (135-145); Total Protein 7.5 g/dL (6.5-8.0); Triglycerides 65 mg/dL (<150)
== END 2024-11-23 10:48 | disposition home or self-care (01) ==
LOC: HO.10HDL 10:47
PROVIDERS: Visit Provider Student in an Organized Health Care Education/Training Program
DX: I10 Essential (primary) hypertension (principal); E78.00 Pure hypercholesterolemia, unspecified; Z13.1 Encounter for screening for diabetes mellitus
CPT/HCPCS: 36415; 80053; 80061; 82306; 83036; 84443; 85025

== ENCOUNTER 2024-12-21 11:07 | Outpatient (AMB) | payer MEDICARE, SELFPAY ==
--- OUTSIDE RECORDS SUMMARY | 2024-05-22 05:50 | XMS_ITS ---
Author Organization [facility] Address [address] [place] [address] Care Team Providers Care 5Th Grade Teacher Name Role Phone Darnell (RETIRED) , Trace Primary Care Provide r Kapil Choi Jr, Roly Dick REASON FOR VISIT screening Encounters Encounter Location Date Provider Diagnosis [facility] [place] Out[place] [address] [place] [id number] 05/22/2024 Roly Choi Jr Plan Of Treatment No Information Progress Notes * WILLIS OLVERA MaryDOB:[birth year] (69 yo M)Acc No.[id number]:05/22/2024 COLON WITH MAC Patient: WILLIS AGUILAR Provider: Anish Choi MD :1955 A ge:68 Y S ex:Male Date:05/22/2024 Address:[address] [place], [place] [phone] Pcp:Trace Patrick (RETIRED )MD Subjective: * Chief Complaints: * 1 . Screening. * Medical History: Objective: * Vitals: Assessment: Plan: * Treatment: * * The named appointment provid er may or may not be the originator of this progress note, and it is not deemed complete until electronically signed by the appointment provider. Sign off status: Pending * Provider: Anish Choi MD Date: 0 05/22/2024 Generated for Printi ng/Faxing/eTransmitting on: 1 01:52 PM EDT
--- OUTSIDE RECORDS SUMMARY | 2024-06-01 08:40 | XMS_ITS ---
Author Organization [facility] Address [address] [place] [address] Care Team Providers Care Tile Setter Apprentice Name Role Phone Darnell (RETIRED) , Trace Primary Care Provide r Kapil Choi Jr, Roly Dick [phone] REASON FOR VISIT screening Encounters Encounter Location Date Provider Diagnosis [facility] [place] Outpatient [address] [place] [id number] 06/01/2024 Roly Choi Jr Plan Of Treatment No Information Progress Notes * WILLIS OLVERA MaryDOB:[birth year] (69 yo M)Acc No.[id number]:06/01/2024 COLON WITH MAC Patient: WILLIS AGUILAR Provider: Anish Choi MD :1955 A ge:68 Y S ex:Male Date:06/01/2024 Address:[address] [place], [place] [address] Pcp:Trace Patrick (RETIRED )MD Subjective: * Chief [...] * Provider: Anish Choi MD Date: 0 06/01/2024 Generated for Printi ng/Faxing/eTransmitting on: 1 01:52 PM EDT
--- OUTSIDE RECORDS SUMMARY | 2024-06-19 08:50 | XMS_ITS ---
Author Organization [facility] Address [address] [place] [address] Care Team Providers Care Meat Butcher Name Role Phone Darnell (RETIRED) Trace NUÑEZ Primary Care Provide r Roly Hussein Jr Unavailable REASON FOR VISIT colon screening Encounters Encounter Location Date Provider Diagnosis [facility] [place] [address] [place] [phone] 06/19/2024 Roly Choi Jr Colon cancer screening Z12.11 Assessments Encounter Date Diagnosis (ICD Code) Assessment Notes Treatment Notes Treatment Clinical Notes Section Notes 06/19/2024 Colon cancer screening (ICD-10 - Z12.11) Plan Of Treatment No Information Progress Notes * WILLIS OLVERA MaryDOB:[birth year] (69 yo M)Acc No.[id number]:06/19/2024 COLON WITH MAC Patient: WILLIS AGUILAR Provider: Anish Choi MD :1955 A ge:68 Y S ex:Male Date:06/19/2024 Address:[address] [place], [place] [phone] Pcp:Trace Patrick (RETIRED )MD Subjective: * Chief Complaints: * 1 . Colon screening. * Medical History: Objective: * Vitals: Assessment: * Assessment: 1. C olon cancer screening - Z12.11 (Primary) Plan: * Treatment: * Procedure Codes: 4 5378 DIAGNOSTIC COLONOSCOPY, 0529F INTRVL 3+YRS PTS CLNSCP DOCD * * The named appointment provid er may or may not be the originator of this progress note, and it is not deemed complete until electronically signed by the appointment provider. Sign off status: Pending * Provider: Anish Choi MD Date: 0 06/19/2024 Generated for Justyna miranda/Everardo/Emilee on: 1 01:52 PM EDT
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
[2024-12-21 11:15] VITALS: PULSE 97; RESP 16; O2SAT 98; BMI 23.1
--- OUTSIDE RECORDS SUMMARY | 2024-12-21 13:52 | XMS_ITS | Patient Health Record ---
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 Phone Darnell (RETIRED) Trace NUÑEZ Primary Care Provide r Unavailable Roly Choi Jr Unavailable Allergies Allergen (clinical drug ingredient) Drug/Non Drug Allergy documented on EMR Reaction Allergy Type Onset Date Status Penicillin Unknown Drug Allergy Active Reason For Referral Referring Provider First Name Trace Referring Provider Last Name Darnell (RETI RED) Referring Provider Speciality Internal M edicine Referred Organization [facility] Referred Provider Roly Choi Jr Referred Address [address],[place], [place],[address], Referred Provider Specialty Gastroentero logy General Notes [...] ONE TABLE T BY MOUTH EVERY EVENING Oral; Duration: 90 Active MiraLax (colon prep) 17 GM/SCOOP mixed with Gatorade or Crystal Light Orally begin at 5:00 p.m. the day before the procedure; Duration: 1 day 04/11/2024 Active amLODIPine Besylate 10 MG TAKE ONE TABLE T BY MOUTH EVERY DAY Oral; Duration: 90 Active traMADol HCl 50 MG Oral; Duration: 30 Active Immunizations Vaccine Route Administration Date Status Comme nts Influenza Unknown 12/27/2023 Administered Social History Tobacco Use: Social History Observation Description Date Details (start date - stop date) Former Smoker NA - NA Tobacco Use/Smoking Question Answer Notes Patient is a former smoker Problems Problem Type SNOMED Code ICD Code Onset Dates Problem Status W/U Status Risk Notes Problem Colon cancer screening (078275793) Colon cancer screening (Z12.11) Active confirmed Problem Preprocedural examination (824829243806197) Preprocedural examination (Z01.818) Active confirmed Vital Signs Temperature 97.5 degrees Fahrenheit 04/11/2024 Blood pressure diastolic 00 mm Hg 04/11/2024 Height 72 in 04/11/2024 Blood pressure systolic 000 mm Hg 04/11/2024 Weight 169 lb 6 oz lbs 04/11/2024 BMI 22.97 kg/m2 04/11/2024 Encounters Encounter Location Date Provider Diagnosis [facility] Out[facility] [address] [place] [id number] 06/19/2024 Roly Choi Jr Colon cancer screening Z12.11 [facility] [address] [place] [phone] 04/11/2024 Roly Choi Jr Colon cancer screening Z12.11 and Preprocedural examination Z01.818 [facility] [address] [place] [phone] 05/17/2024 Roly Choi Jr Assessments Encounter Date [...] Insured Coverage Start Date Coverage End Date [facility] [employer] [address] [place] [address] [phone] [id number] WILLIS OLVERA Self - patient is the insured Medical (General) History Medical History History ICD Code Hypertension Colonoscopy in 2013, diverticulosis Hyperlipidemia Back pain Surgical History Surgery Date(Month/Year) hernia repair
== END 2024-12-21 11:57 | disposition home or self-care (01) ==
LOC: HO.PMC 11:08
PROVIDERS: PCP Student in an Organized Health Care Education/Training Program; Visit Provider Registered Nurse Emergency
DX: M48.03 Spinal stenosis, cervicothoracic region (principal); G89.4 Chronic pain syndrome; Z79.891 Long term (current) use of opiate analgesic; M47.816 Spondylosis without myelopathy or radiculopathy, lumbar region; M51.369 Other intervertebral disc degeneration, lumbar region without mention of lumbar back pain or lower extremity pain; M47.812 Spondylosis without myelopathy or radiculopathy, cervical region
CPT/HCPCS: 99204; G2211

== ENCOUNTER → 2024-12-21 11:07 | Outpatient (BNVA) | payer MEDICARE, SELFPAY | PROVIDERS: PCP Student in an Organized Health Care Education/Training Program; Visit Provider Registered Nurse Emergency | DX: M48.03 Spinal stenosis, cervicothoracic region (principal); G89.4 Chronic pain syndrome; F11.90 Opioid use, unspecified, uncomplicated; M47.816 Spondylosis without myelopathy or radiculopathy, lumbar region; M51.360 Other intervertebral disc degeneration, lumbar region with discogenic back pain only; M47.812 Spondylosis without myelopathy or radiculopathy, cervical region | CPT/HCPCS: 99202 ==

== ENCOUNTER → 2025-01-21 07:09 | Outpatient (BNV) | payer MEDICARE, SELFPAY | PROVIDERS: PCP Student in an Organized Health Care Education/Training Program; Visit Provider Radiology Diagnostic Radiology | DX: S32.029A Unspecified fracture of second lumbar vertebra, initial encounter for closed fracture (principal); M47.815 Spondylosis without myelopathy or radiculopathy, thoracolumbar region; M48.061 Spinal stenosis, lumbar region without neurogenic claudication | CPT/HCPCS: 72148 ==

== ENCOUNTER 2025-01-21 07:12 | Outpatient (REF) | payer MEDICARE, SELFPAY ==
--- NOTE | ~2025-01-21 | MR_ITS ---
EXAMINATION: MR LUMBAR SPINE WITHOUT CONTRAST CLINICAL INFORMATION: M 48.03. COMPARISON: None available. TECHNIQUE: MRI of the lumbar spine was obtained using routine sequences without contrast. FINDINGS: Last rib-bearing vertebra labeled T12. There is diffuse bone marrow STIR signal at the vertebral body of L2 and likely extending into the pedicles. There is a horizontal oriented hypointense T1 and T2 signal in the superior endplate of L2. Multilevel marginal osteophyte formation and endplate irregularity, subchondral cyst formation and decreased intervertebral disc height and signal throughout the axial skeleton with Modic type II endplate changes at L5-S1. Bone marrow inhomogeneity throughout the axial skeleton. Bone marrow hyperintense T1 signal in the sacrococcyx and lower thoracic spine suggesting fatty replacement. Grade 1 retrolisthesis at multiple levels, T12-L1, L1 to, L2-3 and L5-S1 levels. Grade 1 anterolisthesis L4-5. S-shaped curvature of the thoracolumbar spine with a dextroconvex rotoscoliosis pattern apex at L2-3. Conus medullaris ends at pedicle of L1 with normal signal. T11-12: Bilateral facet joint and ligamentum flavum hypertrophy resulting in dorsal deformity of the thecal sac. Broad-based disc bulging. No compression upon neural elements. T12-L1: Broad-based disc bulging. Facet joint and ligamentum flavum hypertrophy. No central spinal canal stenosis. Left neuroforamina narrowing. L1-2: Broad-based disc bulging. Facet joint and ligamentum flavum hypertrophy. Central spinal canal and bilateral neuroforamina stenosis likely encroaching the neural elements. L2-3: Broad-based disc bulging. Facet joint and ligamentum flavum hypertrophy resulting in CSF effacement of the thecal sac central spinal canal and bilateral neuroforamina stenosis encroaching posterior compressing the neural elements. L3-4: Broad-based disc bulging. Facet joint and ligamentum flavum hypertrophy causing CSF effacement of the thecal sac central spinal canal and bilateral neuroforamina stenosis, left greater right compressing the neural elements. L4-5: Broad-based disc bulging. Facet joint and ligamentum flavum hypertrophy causing CSF effacement of the thecal sac central spinal canal and bilateral neuroforamina stenosis, right greater than the left side. L5-S1: Broad-based bulging. Facet joint hypertrophy. Bilateral neuroforamina stenosis, right greater than left compressing the exiting nerve roots. No gross central spinal canal stenosis. No prevertebral compartment hematoma, mass or fluid collection. There is a 1 cm exophytic isointense T1 lesion in the posterior upper pole of the left kidney. MR/MR lumbar spine wo con IMPRESSION: Acute to subacute compression fracture L2 without retropulsion or gross volume loss. Multilevel thoracolumbar spondylosis resulting in central spinal canal and bilateral neuroforamina stenosis compressing the neural elements from L1 to 2 L5-S1 pronounced at L3-4 and L2-3 levels. Findings communicated into the requesting nurse practitioner the Mary davalos on January 21, 2025 at 9:30 AM. Electronically signed by: Michael Zhang MD 01/21/2025 09:37 AM CAB[facility]A
== END 2025-01-21 07:13 | disposition home or self-care (01) ==
LOC: HO.MRI 07:12
PROVIDERS: PCP Student in an Organized Health Care Education/Training Program; Visit Provider Registered Nurse Emergency
DX: M47.816 Spondylosis without myelopathy or radiculopathy, lumbar region (principal); M48.03 Spinal stenosis, cervicothoracic region; M51.369 Other intervertebral disc degeneration, lumbar region without mention of lumbar back pain or lower extremity pain; G89.4 Chronic pain syndrome
CPT/HCPCS: 72148